=== PATIENT | female | born 1945 | race Caucasian/White ===

== ENCOUNTER → 2017-08-16 11:22 | Outpatient (CLI) | payer MEDICARE, OTHER, SELFPAY ==
[2017-08-16 11:51] LABS: Alanine Aminotransferase 26 IU/L (9-52); Albumin 3.7 g/dL (3.5-5.0); Albumin Globulin Ratio 1.2 (1.0-2.8); Alkaline Phosphatase 89 U/L (38-126); Aspartate Aminotransferase 22 IU/L (14-36); BUN Creatinine Ratio 22.5 (6-22); Bilirubin Total 0.5 mg/dL (0.2-1.3); Blood Urea Nitrogen 18 mg/dL (7-17); Calcium 10.1 mg/dL (8.4-10.2); Carbon Dioxide 25 mmol/L (22-32); Chloride 109 mmol/L (98-107); Estimated Glomerular Filt Rate > 60.0 mL/min (>60); Glucose 102 mg/dL (80-110); HEMOLYSIS < 15 (0-50); Potassium 3.7 mmol/L (3.4-5.1); Sodium 144 mmol/L (137-145); Total Protein 6.7 g/dL (6.3-8.2)
[2017-08-16 12:03] LABS: Hematocrit 43.4 % (36-46); Hemoglobin 14.5 g/dL (12.0-16.0); Mean Corpuscular HGB Conc 33.4 % (30-36); Mean Corpuscular Hemoglobin 29.8 PG (26-34); Mean Corpuscular Volume 89.3 fL (80-100); Platelet Count 159 X10^3/uL (150-400); Red Blood Cell Count 4.86 X10^6/uL (4.0-5.2); Red Cell Distribution Width 13.4 % (11.6-14.8); White Blood Cell Count 3.1 X10^3/uL (4.5-11.0)
[2017-08-16 12:04] LABS: Add Manual Diff / Slide Review YES
[2017-08-16 12:40] LABS: Neutrophils Absolute Manual 124 /uL (3000-5900); RBC Morphology Normal Morphology; Total Cells Counted 100
--- NOTE | 2017-08-23 14:56 | PC.NURSE ---
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
== END ==
PROVIDERS: Family Provider Internal Medicine; PCP Internal Medicine; Visit Provider Nurse Practitioner Gerontology
DX: D70.9 Neutropenia, unspecified (principal)
CPT/HCPCS: 36415; 80053; 85025

== ENCOUNTER → 2018-02-11 13:45 | Outpatient (CLI) | payer MEDICARE, OTHER, SELFPAY ==
[2018-02-11 14:16] LABS: Hematocrit 42.4 % (36-46); Hemoglobin 14.3 g/dL (12.0-16.0); Mean Corpuscular HGB Conc 33.7 % (30-36); Mean Corpuscular Hemoglobin 29.8 PG (26-34); Mean Corpuscular Volume 88.4 fL (80-100); Platelet Count 171 X10^3/uL (150-400); Red Blood Cell Count 4.79 X10^6/uL (4.0-5.2); Red Cell Distribution Width 13.5 % (11.6-14.8); White Blood Cell Count 4.3 X10^3/uL (4.5-11.0)
[2018-02-11 14:34] LABS: Add Manual Diff / Slide Review YES
[2018-02-11 14:57] LABS: Carbon Dioxide 26 mmol/L (22-32); Chloride 106 mmol/L (98-107); HEMOLYSIS < 15 (0-50); Sodium 143 mmol/L (137-145)
[2018-02-11 15:01] LABS: Neutrophils Absolute Manual 172 /uL (3000-5900); RBC Morphology Normal Morphology; Total Cells Counted 100
== END ==
PROVIDERS: Orthopaedic Surgery; Family Provider Internal Medicine; PCP Internal Medicine; Visit Provider Nurse Practitioner Gerontology
DX: Z01.818 Encounter for other preprocedural examination (principal)
CPT/HCPCS: 36415; 80051; 85025

== ENCOUNTER → 2018-02-11 14:01 | Outpatient (CLI) | payer MEDICARE, OTHER, SELFPAY | PROVIDERS: PCP Internal Medicine; Visit Provider Orthopaedic Surgery | DX: Z01.818 Encounter for other preprocedural examination (principal) | CPT/HCPCS: 93005; 93010 ==

== ENCOUNTER → 2018-03-01 09:57 | Outpatient (CLI) | payer MEDICARE, OTHER, SELFPAY ==
--- NOTE | 2018-03-01 | DI.MRI.S_ITS ---
PROCEDURE: MR KNEE LT WO CON INDICATIONS: UNILATERAL PRIMARY OSTEOARTHRITIS OF LEFT KNEE TECHNIQUE: Noncontrast sagittal PD fast spin echo and T2 fast spin echo with fat saturation, sagittal 3-D FLASH with fat saturation; coronal T1 spin echo and PD fast spin echo with fat saturation, and axial PD fast spin echo with fat saturation through the knee. COMPARISON: [facility] [place], CR, KNEE SERIES LT, 05/29/2016, 12:26. FINDINGS: Image quality: Excellent. Menisci: The intrameniscal amorphous high signal intensity within the posterior horn medial meniscus is present without definite articular surface extension. There is lateral extrusion of the lateral meniscus, which demonstrates diffuse amorphous high signal intensity with superior and inferior articular surface extension, as well as fragmentation, indicating severe degenerative tearing. Cruciate ligaments: The anterior and posterior cruciate ligaments appear intact. Medial structures: The medial collateral ligament appears intact. Visualized portions of the pes anserinus tendons appear normal. No abnormal bursal fluid. Lateral structures: The lateral collateral ligament demonstrates a small amount of fluid signal intensity within its mid and distal aspects. The long and short heads of the biceps femoris tendon appear intact. The popliteus tendon appears normal. Iliotibial band appears normal. Anterior structures: The quadriceps and patellar tendons appear intact. There is mild lateral patellar subluxation. No femoral trochlear dysplasia or ventral trochlear prominence. No edema in the infrapatellar fat pad. Bones and cartilage: No bone marrow contusions or fractures. Intraosseous ganglia and degenerative marrow edema within the mid and posterior aspect of the central tibial plateau. Moderate tricompartmental periarticular osteophyte formation. Mild diffuse articular cartilage loss overlies the weightbearing aspects of the medial femoral condyle and medial tibial plateau with superimposed moderate articular cartilage loss diffusely overlying the mid weightbearing aspect of the medial femoral condyle. Severe diffuse articular cartilage loss overlies the weightbearing aspects of the lateral femoral condyle and lateral tibial plateau. Moderate diffuse articular cartilage loss overlies the medial and lateral patellar facets with a superimposed 3 mm diameter region of full-thickness articular cartilage loss overlying the lateral patellar facet. Mild ill-defined underline degenerative marrow edema within the lateral patellar facet is present. Joint space: There is a large knee joint effusion and a small Rouse's cyst. Small ganglion cyst along the popliteus. Normal appearing synovial plicae are incidentally noted. IMPRESSION: 1. Tricompartmental osteoarthritis with associated articular cartilage loss. 2. Severe degenerative tearing of the lateral meniscus. Myxoid degeneration of the medial meniscus without definite superimposed tear. 3. Partial-thickness lateral collateral ligament tear. 4. Knee joint effusion and Rouse's cyst. Dictated by: Manuel Hough M.D. on 03/01/2018 at 11:21 Approved by: Manuel Hough M.D. on 03/01/2018 at 11:26
== END ==
PROVIDERS: Family Provider Internal Medicine; PCP Internal Medicine; Visit Provider Orthopaedic Surgery
DX: M17.12 Unilateral primary osteoarthritis, left knee (principal)
CPT/HCPCS: 73721

== ENCOUNTER 2018-03-20 07:37 | Day surgery (SDC) | payer MEDICARE, OTHER, SELFPAY ==
[2018-03-14 10:02] VITALS: BMI 26.2
[2018-03-20] VITALS (17 sets, daily range): BP systolic 94–144; BP diastolic 44–86; PULSE 65–80; RESP 10–16; TEMP 36.4–37; O2SAT 91–98; BMI 26.0
--- NOTE | 2018-03-20 | DI.RAD.S_ITS ---
PROCEDURE: XR KNEE LT 1TO2V INDICATIONS: TOTAL LEFT KNEE TECHNIQUE: 2 view(s) of the knee acquired. COMPARISON: , , KNEE 3V LEFT, 09/14/2009, 10:03. FINDINGS: Bones: Patient is status post knee joint arthroplasty. Hardware components are in expected positions. Visualized bony structures are intact. Soft tissues: Overlying postoperative changes are noted. IMPRESSION: Normal postoperative examination. Dictated by: Simon Grant M.D. on 03/20/2018 at 10:46 Approved by: Simon Grant M.D. on 03/20/2018 at 10:46
[2018-03-20] MEDS: PREGABALIN 75 MG CAPSULE PO (08:09)
[2018-03-20] MEDS: CELECOXIB 200 MG CAPSULE PO (08:09)
[2018-03-20] MEDS: ACETAMINOPHEN 325 MG TABLET 975 MG PO ×3 (08:09→20:49)
[2018-03-20] MEDS: LACTATED RINGERS 1,000 ML 42 ML IV ×2 (08:11→09:54)
[2018-03-20] MEDS: CEFAZOLIN 2 GM/100 ML FROZ.PIGGY IV ×2 (08:50→17:23)
--- NOTE | 2018-03-20 08:50 | PM.PREOP ---
Pre-operative Note Interval Note History & Physical reviewed/Exam performed by Physician: Yes Changes to H&P: No
--- NOTE | 2018-03-20 08:52 | P.OP_ITS ---
Operative Date/Time/Diagnoses Date of procedure: 03/20/18 Time of procedure: 10:13 Pre-op diagnosis: Left knee osteoarthritis Post-op diagnosis: same Procedure & Clinicians Procedure: Left total knee arthroplasty Same procedure as scheduled: Yes Indications: The patient presents today for total knee arthroplasty after failure of conservative treatment. The nature of the procedure including the risks and benefits, alternatives, postoperative course and expected outcome were discussed and all questions answered. Consent was obtained. Operative site confirmed and marked. Surgeon: Mani Sanchez [employer]cher [employer]ards: Nicholas Waters Anesthesia Type: General, Spinal and Local Operative Notes Findings: Left knee osteoarthritis. Closure Type: primary Specimen(s): none sent Implants & Drains: [employer] BCS: 4 femoral component, 3 tibial component, 9 mm BCS polyethylene tray and 32 mm x 7.5 mm mm round patella Applied: implant(s) Estimated Blood Loss (mL): 50 Blood products transfused: none Tourniquet time (min): 17 Procedure in detail: The patient was taken to the operative suite and placed under general and spinal anesthesia. The patient was given prophylactic antibiotics prior to surgery. The patient was also given tranexamic acid, 1 g, just prior to surgery for postoperative hemostasis. The lateral knee was prepped and the joint injected with 20 mL of 1% Lidocaine with epinephrine. The knee was then prepped and draped in usual sterile fashion. The leg was exsanguinated with an Esmarch dressing and the tourniquet raised to 250 torr. A 15 cm anterior incision was made. Next a medial trivector arthrotomy was made. The extensor mechanism was marked to ensure accurate repair. Initial exposing dissection was carried out medially and laterally. The knee was then extended and the patellar thickness was measured and a cut made removing approximately 7 mm of bone with a goal of restoring normal patellar thickness. The patella was then sized and drilled. Some excess lateral bone was excised and the patellofemoral ligament released. The tourniquet was then released. The knee was then flexed and the [employer] femoral guide was placed. The anterior pins were placed and the distal rotation holes drilled. The distal cutting guide was placed and the templated distal femoral cut was made. The templating cutting block was then placed and the anterior, posterior and chamfer cuts made. The [employer] tibial guide was placed and the alignment checked along the axis of the proximal tibial with a rogerio. The proximal tibial cut was then made with an oscillating saw. All meniscus and bony debris was then removed. Flexion extension gaps were checked. There is just slight tightness medially in both flexion and extension. This was easily corrected with a gentle percutaneous release with 18 gauge needle on the MCL. The soft tissues were then injected with a combination of 20 mL of half percent Marcaine with epinephrine and 20 mL of Exparel. The trial components were then placed. The knee went into full extension and flexion beyond 120?. There was excellent medial- lateral balance throughout motion. Patellar tracking was excellent. The trial components were removed and size is confirmed for the final implants. The knee was then exsanguinated with an Esmarch dressing and the tourniquet reapplied for cementing. The knee was cleansed with Pulsavac irrigation and dried. The final components were cemented in with high viscosity vacuum mixed bone cement with antibiotics. The knee was held in extension and the patellar clamp until the cement had adequately cured. The knee was then irrigated with dilute Betadine solution. The extensor mechanism was closed with 5 interrupted #1 Vicryl sutures in 90 degrees of flexion. The joint was then injected with a combination of 1 g of tranexamic acid and 20 mL of quarter percent Marcaine with epinephrine. The subcutaneous tissue was closed with 2-0 Vicryl. The skin was closed with jodie and surgical adhesive. An Aquacel dressing and Virgil wrap were then applied. Complications: none Condition: stable Disposition: PACU Plan for aftercare: [facility] protocol for total knee arthroplasty.
--- NOTE | 2018-03-20 09:22 | SUR.OPER ---
Supine on padded OR bed. Pillow under head, arms secured on padded armboards <90 degree abduction. Safety belt across torso. Non-operative leg secured with tape over blanket over lower leg. Operative leg secured in DeMayo/Marcos positioner. Foam padded brace at thigh of operative leg.
[2018-03-20] MEDS: TRANEXAMIC ACID 1,000 MG VIAL 2000 MG INJ (09:29)
[2018-03-20] MEDS: LIDOCAINE 1% W/EPI INJ 20 ML INJ (09:31)
[2018-03-20] MEDS: BUPIVACAINE LIPOSOME 266 MG/20 ML VIAL INJ (09:32)
[2018-03-20] MEDS: BUPIVACAINE 0.5% W/ EPI (PF) 10 ML, TRANEXAMIC ACID 1,000 MG, SODIUM CHLORIDE 0.9% 20 ML INJ (09:33)
[2018-03-20] MEDS: LACTATED RINGERS 1,000 ML 125 ML IV ×2 (12:13→20:56)
--- NOTE | 2018-03-20 15:50 | PT.IIE ---
Current Diagnoses Bilateral primary osteoarthritis of knee (03/20/18) Surgery Performed Operation Date: 03/20/18 08:45 Actual Procedures p Total Knee Arthroplasty(Left) - Mani Sanchez MD Surgical History (Last Updated 03/14/18 @ 10:25 by Cherelle Arora RN) History of left cataract extraction (Acute ~2016) History of right cataract extraction (Acute ~2013) History of tonsillectomy and adenoidectomy (Acute) Medical History (Last Updated 03/14/18 @ 10:25 by Cherelle Arora RN) Diverticulitis (Acute ~09/2017) Edema extremities (Acute) GERD (gastroesophageal reflux disease) (Acute) H/O: hysterectomy (Acute) HTN (hypertension) (Acute) Hyperlipidemia (Acute) Lower back pain (Acute) Macular pucker, right eye (Acute ~2013) Urethra disorder (Acute ~1969) Walking pneumonia (Acute) Physical Therapy Inpatient Evaluation/Re-Eval M1 PT/OT-IP Prior Functional Status Start: 03/20/18 17:10 Freq: NEEDED Status: Active Protocol: Document 03/20/18 15:50 AB (Rec: 03/20/18 17:20 AB [id number]) Medical Review Prior Functional Status Medical History Reviewed Yes Communication able to make needs known Mobility and Gait stated that she is independent with all mobilitieis and ambulation without AD Prior Functional Level (Other details) 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 pt stays on main level of the house; has 3 steps to enter with L rail ascending Home Environment High Toilet Walk in Shower Home Equipment Front Wheel Walker Straight Cane Raised Toilet Seat w/Armrests Shower Seat with Backrest Hand Held Shower M2 PT-IP Current Condition Start: 03/20/18 17:10 Freq: NEEDED Status: Active Protocol: Document 03/20/18 15:50 AB (Rec: 03/20/18 17:20 AB [id number]) Physical Therapy Current Condition Current Condition Evaluation Date 03/20/18 Treatment Diagnosis s/p L TKA; difficulty in walking Onset Date 03/20/18 Weight Bearing Status Weight Bearing Status Weight Bear as Tolerated M3 PT-IP Subjective Start: 03/20/18 17:10 Freq: NEEDED Status: Active Protocol: Document 03/20/18 15:50 AB (Rec: 03/20/18 17:20 AB [id number]) Subjective Physical Therapy Visit Type Type Initial Evaluation Visit Start Time 15:50 Visit Stop Time 16:45 Total Visit Minutes 55 Number of DITCHER OPERATOR Visits 0 Physical Therapy Visit Comments Patient Comments pt agreeable to do PT Therapy Pain Assessment Pain Present Pain Present Denied Pain M4 PT-IP Mobility and Gait Start: 03/20/18 17:10 Freq: NEEDED Status: Active Protocol: Document 03/20/18 15:50 AB (Rec: 03/20/18 17:20 AB [id number]) PT-Bed Mobility Assessment Supine to Sit Supine to Sit Standby Assistance PT-Transfer Assessment Sit to and From Stand Sit to and from Stand Minimal Assistance Equipment Transfer Assistive Device Gait Belt Front Wheeled Walker Orthotic/Prosthetic Devices or Brace: No Transfers Transfer Destination Toilet Transfer Technique pt ambulated to the toilet using FWW Comments Mobility Comments pt compleed bed mobility supine to sit SBA and sit to stand from EOB min A and max cues for safety. pt ambulated using FWW to the toilet min A and cues to activate quads. pt required mod A for controlled descent to the toilet. completed sit to stand from the toilet mod A and cues and used grab bars for support. pt ambulated to the sink using FWW min A and was able to maintain standing CGA to min A while doing handwashing. pt agreed to sit up on chair and ambulated to the chair using FWW min A and cues. set up on chair with ice pack, call light and table within reach. Gait Assessment Gait Gait Assistance Required: Minimum Assistance Distance (Feet) 20 Able to Maintain Weight Bearing Status Yes During Gait Assistive Devices Assistive Device Gait Belt Front Wheeled Walker Orthotic/Prosthetic Devices or Brace: No Gait Deviations General Gait Pattern Antalgic Decreased Stride Length Decreased Feet Clearance Factors Limiting Gait Function Factors Limiting Gait Function Decreased Activity Tolerance Decreased Strength Limited Range of Motion Poor Balance Poor Safety Awareness Comments Gait Comments pt ambulated to the toilet using FWW. pls refer to mobility section for details. PT-Balance Assessment Sitting Balance and Reactions Static Sitting Balance Ability Good Dynamic Sitting Balance Ability Good Standing Balance and Reactions Static Standing Balance Ability Fair Dynamic Standing Balance Ability Fair Device Used FWW M5 PT-IP Objective Assessments Start: 03/20/18 17:10 Freq: NEEDED Status: Active Protocol: Document 03/20/18 15:50 AB (Rec: 03/20/18 17:20 AB [id number]) Orientation Orientation/Cognition Level of Alertness Alert Orientation Name Age Birthday Month Date Year Day of Week Place Situation Language Function Ability No Deficits Noted Safety Awareness Understands Safety Issues Memory Description No Deficits Noted Gross Range of Motion Lower Extremity ROM Assessment Left Impaired Impairments L knee flexion: ~ 90 deg Strength Lower Extremity Strength Assessment Left Impaired Hip 4-/5 Knee 3+/5 Coordination Assessment Gross Coordination Gross Coordination WNL Sensation Assessment Comments Sensation Comments c/o numbness on buttocks Muscle Tone Muscle Tone WNL Yes M6 PT-IP Treatment Start: 03/20/18 17:10 Freq: NEEDED Status: Active Protocol: Document 03/20/18 15:50 AB (Rec: 03/20/18 17:20 AB [id number]) Physical Therapy Treatment Education Education Provided Precautions Weight Bearing Status Post-Op Packet Safety M7 PT-IP Assessment and Plan Start: 03/20/18 17:10 Freq: NEEDED Status: Active Protocol: Document 03/20/18 15:50 AB (Rec: 03/20/18 17:20 AB [id number]) PT Summary Assessment and Plan Potential Rehabilitation Potential Good Status of Condition at Evaluation Stable Summary Impairments Pain ROM Strength Balance Coordination Sensation Tone Cognition Bed Mobility Transfers Gait Activity Tolerance Assessment Summary pt requiring one person assist with mobility and plans to go home with her significant other to assist her. set up caregiver training tomorrow at 930 am. d/c plan depending on safety and if S.O. will be able to assist pt appropriately. pt stated that she is set up for outpt PT. Goals Bed Mobility Goal Independent Transfer Goal Standby Assistance Front Wheeled Walker Gait Goal Standby Assistance Front Wheel Walker Gait Distance 150 Other Goals up/down 3 steps with L rail ascending SBA Days to Meet Goals 3 Frequency of Treatment Frequency Of Treatment Twice a Day Treatment Plan Physical Therapy Treatment Plan Bed Mobility Training Transfer Training Gait Training Therapeutic Exercise Balance Retraining Post Op Education Discharge Planning Hot or Cold Pack Neuromuscular Re-ed Coordination Retraining Manual Therapy Other Recommendations and Next Treatment caregiver training 930 am , Focus stair climbing, long distance ambulation Recommendations To Nursing Amount of Assist Needed 1 Person Assist Discharge Recommendations PT Discharge Recommendations Home with Assistance Outpatient PT
[2018-03-20] MEDS: ATORVASTATIN 10 MG TABLET PO (20:49)
[2018-03-20] MEDS: ASPIRIN EC 81 MG TABLET PO (20:49)
[2018-03-21 00:05] VITALS: BP 109/63; PULSE 67; RESP 18; TEMP 36.7; O2SAT 95
[2018-03-21] MEDS: CEFAZOLIN 2 GM/100 ML FROZ.PIGGY IV (02:12)
[2018-03-21 04:35] VITALS: BP 120/53; PULSE 76; RESP 18; TEMP 36.7; O2SAT 95
--- NOTE | 2018-03-21 05:26 | PC.NURSE ---
Pt is A and O x 4, motivated to discharge. Denies pain, using two ice packs. Able to sleep. LS clear, S1, S2, + BTs. Voiding qs clear yellow. Eating and drinking.
[2018-03-21] MEDS: SODIUM CHLORIDE 0.9% 1,000 ML 125 ML IV (05:49)
[2018-03-21] MEDS: IBUPROFEN 600 MG TABLET PO ×2 (05:52→13:01)
[2018-03-21] MEDS: PANTOPRAZOLE 20 MG TABLET PO (05:52)
[2018-03-21 06:06] LABS: Hemoglobin 11.4 g/dL (12.0-16.0)
--- NOTE | 2018-03-21 07:27 | PM.DS.1 ---
History of Present Illness Date Patient Seen: 03/21/18 Time Patient Seen: 07:27 Chief complaint: 43050 Knee Arthroplasty Narrative: Pain is mild. Denies fever chills. No nausea vomiting. Patient has assistance at home. Patient feels ready to go home today. Discharge Providers Date of admission: 03/20/18 07:37 Primary care physician: Joy Woo MD Consults: 03/20/18 11:11 Consult to Discharge Planning Routine Comment: Consult to Physical Therapy Evaluate & Treat Comment: Physician Instructions: postop TKA protocol Consult to Respiratory Therapy Evaluate & Treat Comment: Physician Instructions: Evaluate and treat Discharge provider: Nicholas Waters PA-C Discharge Date: 03/21/18 Summary Discharge Diagnosis: Status post left total knee arthroplasty Hospital Course: The patient presents today for total knee arthroplasty after failure of conservative treatment. The nature of the procedure including the risks and benefits, alternatives, postoperative course and expected outcome were discussed and all questions answered. Consent was obtained. Operative site confirmed and marked. Surgeon: Mani Sanchez Category Development Manager: Nicholas Waters Anesthesia Type: General, Spinal and Local Patient taken to the operating room underwent left total knee arthroplasty. Patient back in her room recovering well as in stable condition. Exam Vital Signs (past 8 hours): - 03/21/18 00:05 03/21/18 04:35 Temperature 98.0 F 98.1 F Pulse Rate 67 76 Respiratory Rate 18 18 Blood Pressure 109/63 120/53 L Pulse Oximetry 95 95 Fraction of Inspired Oxygen 21 Oxygen Delivery Method Room Air Oxygen Flow Rate 0 Narrative Exam Narrative: Pleasant 73-year-old female resting comfortably in bed in no apparent distress. Left knee dressing is clean, dry and intact. Left leg is warm and dry. Sensation grossly intact to light touch. Motor functions intact distal left lower extremity. Objective Labs Result Diagrams: 03/21/18 05:40 Labs: Laboratory Results - last 24 hr 03/21/18 05:40 Hgb 11.4 L Hct 34.0 L Discharge Plan Discharge Plan Patient Disposition: Home Discharge comment: See [employer] manual for postoperative instructions. Discharge Med Rec/Prescriptions Prescriptions: Continue sumatriptan succinate [Imitrex] 50 MG tablet 1 tab PO TID PRN (Reason: migraines) Qty: 0 RF: 0 aspirin 81 MG tablet,delayed release (DR/EC) 81 mg PO QDAY Qty: 0 RF: 0 omeprazole 20 MG capsule,delayed release(DR/EC) 20 mg PO QDAY Qty: 0 RF: 0 [id number]-FA-vit K [Multi For Her] 18 mg iron-600 mcg-40 mcg Capsule 1 tab-cap PO DAILY Qty: 0 RF: 0 losartan 100 MG tablet 100 mg PO BEDTIME Qty: 0 RF: 0 fluticasone [Flonase Allergy Relief] 50 mcg/actuation [place],Suspension 1 spray Intranasal QDAY Qty: 0 RF: 0 furosemide 20 mg Tablet 20 mg PO DAILY RF: 0 ascorbic acid (vitamin C) [Vitamin C] 500 mg Capsule, Extended Release 500 mg PO DAILY RF: 0 atorvastatin [Lipitor] 10 mg Tablet 10 mg PO BEDTIME RF: 0 calcium carbonate-vitamin D3 [Calcium 500 + D (D3)] 500 mg(1,250mg) -125 unit Tablet 1 tab PO DAILY RF: 0 aspirin 325 mg Tablet 650 mg PO Q4-6H PRN (Reason: pain) RF: 0 Follow up/Referrals: Mani Sanchez MD [Physician] - (follow up 1 wk) Joy Woo MD [Primary Care Provider] - Provider Discharge Instructions Diet: Regular Activity: Activity as tolerated. Start physical therapy as directed. Cold/Heat Therapy: Ice the knee as needed for pain control. Skin/Wound/Dressing Care Report to your healthcare provider any signs of infection, such as:: chills, fever, increased pain, unusual drainage and unusual redness Dressing: May leave dressing in place for 7-10 days. May shower over dressing. Discharge Data Primary Care Provider: Joy Woo Attending Provider: Mani Sanchez Admit Date/Time: 03/20/18 07:37 Quality VTE Deep Vein Thrombosis/Pulmonary Embolism Present on Admission: No
[2018-03-21 08:00] VITALS: BP 112/59; PULSE 68; RESP 16; TEMP 36.6; O2SAT 93
[2018-03-21] MEDS: ACETAMINOPHEN 325 MG TABLET 975 MG PO (08:55)
[2018-03-21] MEDS: ASPIRIN EC 81 MG TABLET PO (08:56)
[2018-03-21] MEDS: FLUTICASONE 120 SPRAY/16 GM SPRAY.SUSP NASAL (08:57)
[2018-03-21 09:31] VITALS: PULSE 68; RESP 16; O2SAT 94
--- NOTE | 2018-03-21 10:15 | PT.IPTN ---
Current Diagnoses Bilateral primary osteoarthritis of knee (03/20/18) Surgery Performed Operation Date: 03/20/18 08:45 Actual Procedures p Total Knee Arthroplasty(Left) - Mani Sanchez MD Physical Therapy Treatment Note M2 PT-IP Current Condition Start: 03/20/18 17:10 Freq: NEEDED Status: Discharge Protocol: Document 03/20/18 15:50 AB (Rec: 03/20/18 17:20 AB [id number]) Physical Therapy Current Condition Current Condition Evaluation Date 03/20/18 Treatment Diagnosis s/p L TKA; difficulty in walking Onset Date 03/20/18 Weight Bearing Status Weight Bearing Status Weight Bear as Tolerated M3 PT-IP Subjective Start: 03/20/18 17:10 Freq: NEEDED Status: Discharge Protocol: Document 03/21/18 10:15 AB (Rec: 03/21/18 13:54 AB [email or web address]) Subjective Physical Therapy Visit Type Type Treatment Note Visit Start Time 10:15 Visit Stop Time 11:00 Total Visit Minutes 45 Number of TOBACCO PACKING MACHINE OPERATOR Visits 0 Physical Therapy Visit Comments Patient Comments pt agreeable to do PT Therapy Pain Assessment Pain When Pain Assessed At Rest Pain Present Pain Present Pain Reported Location left knee Intensity 3 Scale Used Numeric (1 - 10) Pain Management Techniques Apply Cold Timing of Activity with Medications M4 PT-IP Mobility and Gait Start: 03/20/18 17:10 Freq: NEEDED Status: Discharge Protocol: Document 03/21/18 10:15 AB (Rec: 03/21/18 13:54 AB [email or web address]) PT-Bed Mobility Assessment Supine to Sit Supine to Sit Minimal Assistance 1 Person Assistance Sit to Supine Sit to Supine Minimal Assistance 1 Person Assistance PT-Transfer Assessment Sit to and From Stand Sit to and from Stand Contact Guard Assistance 1 Person Assistance Use of Upper Extremities Comments Mobility Comments Caregiver training conducted. pt's significant other educated on how to use gait belt and assist pt with bed mobility, transfers and ambulation and was able to counterdemonstrate; was able to safely assist pt. Gait Assessment Gait Gait Assistance Required: Contact Guard Assist Distance (Feet) 100 Able to Maintain Weight Bearing Status Yes During Gait Assistive Devices Assistive Device Gait Belt Front Wheeled Walker Orthotic/Prosthetic Devices or Brace: No Gait Deviations General Gait Pattern Antalgic Decreased Stride Length Decreased Feet Clearance Factors Limiting Gait Function Factors Limiting Gait Function Decreased Activity Tolerance Decreased Strength Limited Range of Motion Pain Poor Balance Poor Safety Awareness Stair Climbing Assessment Evaluation Level of Assist On Stairs Contact Guard Assistance Devices Stair Climbing Assistive Devices Left Railing Technique/Endurance Stair Climbing Direction Ascend and Descend Stair Climbing Technique Step to Step Number of Steps Climbed 3 Query Text: Stair Climbing Set # Repetitions (reps) 2 Comments Stair Climbing Comments caregiver training condcuted for stair climbing and caregiver was able to safely assist pt with stairs and cue pt appropriately. M5 PT-IP Objective Assessments Start: 03/20/18 17:10 Freq: NEEDED Status: Discharge Protocol: Document 03/20/18 15:50 AB (Rec: 03/20/18 17:20 AB [id number]) Orientation Orientation/Cognition Level of Alertness Alert Orientation Name Age Birthday Month Date Year Day of Week Place Situation Language Function Ability No Deficits Noted Safety Awareness Understands Safety Issues Memory Description No Deficits Noted Gross Range of Motion Lower Extremity ROM Assessment Left Impaired Impairments L knee flexion: ~ 90 deg Strength Lower Extremity Strength Assessment Left Impaired Hip 4-/5 Knee 3+/5 Coordination Assessment Gross Coordination Gross Coordination WNL Sensation Assessment Comments Sensation Comments c/o numbness on buttocks Muscle Tone Muscle Tone WNL Yes M6 PT-IP Treatment Start: 03/20/18 17:10 Freq: NEEDED Status: Discharge Protocol: Document 03/21/18 10:15 AB (Rec: 03/21/18 13:54 AB [email or web address]) Physical Therapy Treatment Education Education Provided Precautions Safety M7 PT-IP Assessment and Plan Start: 03/20/18 17:10 Freq: NEEDED Status: Discharge Protocol: Document 03/21/18 10:15 AB (Rec: 03/21/18 13:54 AB [email or web address]) PT Summary Assessment and Plan Potential Rehabilitation Potential Good Summary Impairments Pain ROM Strength Balance Bed Mobility Transfers Gait Activity Tolerance Progress Towards Goals Progressing Toward Goals Assessment Summary pt doing well with mobility and plans to go home with assist. caregiver training conducted and pt's significant other was able to assist pt safely. Goals Bed Mobility Goal Independent Transfer Goal Standby Assistance Front Wheeled Walker Gait Goal Standby Assistance Front Wheel Walker Gait Distance 150 Other Goals up/down 3 steps with L rail ascending SBA Days to Meet Goals 3 Frequency of Treatment Frequency Of Treatment Twice a Day Treatment Plan Physical Therapy Treatment Plan Bed Mobility Training Transfer Training Gait Training Therapeutic Exercise Balance Retraining Post Op Education Discharge Planning Hot or Cold Pack Neuromuscular Re-ed Coordination Retraining Manual Therapy Other Recommendations and Next Treatment caregiver training 930 am , Focus stair climbing, long distance ambulation Recommendations To Nursing Amount of Assist Needed 1 Person Assist Discharge Recommendations PT Discharge Recommendations Home with Assistance Outpatient PT
--- NOTE | 2018-03-21 13:44 | CM.IDA ---
Discharge Planning/Care Management CM Discharge Assessment Start: 03/21/18 13:40 Freq: Status: Discharge Protocol: Document 03/21/18 13:40 ANDRES (Rec: 03/21/18 13:44 ANDRES [id number]) Discharge Planning Assessment Assigned Business Systems Technician GONZÁLEZ Tran DPOA/Assigned Designee Name CHEN Clark Contact Information [phone] Advance Directives? Yes: Information mailed to patient Advance Directives on File No History Provided By Patient Prior Living Arrangements House Household Members significant other Type of transporation used prior to Drives own vehicle admit Independent with ADL's Yes Is patient alert and oriented? Yes Barriers to Discharge No Comment Met w/pt and her SO Juan, explained SW role. Pt expecting to DC home after lunch. Pt very pleasant and explains the quan path program has been very helpful for her. She is typically active and indp at baseline and has no addtl. concerns or questions going home w/SO today. She expects to f/u w/ the PT she has seen in the past. PT has cleared her for return home w/outpt f/u. Discharge Plan Home Transportation Arrangement SO Referrals Initiated None needed Whiteboard Updated in Patient Room with Yes name and ext. # of Business Systems Technician Review Status In Process Pre-Anesthesia Assessment Start: 03/14/18 10:02
== END 2018-03-21 13:34 | disposition home or self-care (01) ==
LOC: AC 03-21 11:35 → OR 03-21 13:47
PROVIDERS: Family Provider Internal Medicine; PCP Internal Medicine; Visit Provider Orthopaedic Surgery
PROC: 0SRD0JZ Replacement of Left Knee Joint with Synthetic Substitute, Open Approach (ICD-10-PCS; CPT 27447; principal; 2018-03-20 08:45)
DX: M17.12 Unilateral primary osteoarthritis, left knee (principal); I10 Essential (primary) hypertension
CPT/HCPCS: 27447; 36415; 73560; 85014; 85018; 94760; 94762; 97161; 97530; C1776; C9290; J0690; J1100; J2250; J2274; J2405; J2704; J3010

== ENCOUNTER → 2018-04-17 | Outpatient (CLI) | payer MEDICARE, OTHER, SELFPAY ==
[2018-03-20 12:18] VITALS: BMI 26.0
[2018-04-17 16:56] LABS: Hematocrit 39.4 % (36-46); Hemoglobin 13.4 g/dL (12.0-16.0); Mean Corpuscular HGB Conc 33.9 % (30-36); Mean Corpuscular Hemoglobin 30.3 PG (26-34); Mean Corpuscular Volume 89.6 fL (80-100); Platelet Count 177 X10^3/uL (150-400); Red Cell Distribution Width 13.7 % (11.6-14.8)
[2018-04-17 17:11] LABS: Alanine Aminotransferase 26 IU/L (9-52); Albumin 4.3 g/dL (3.5-5.0); Albumin Globulin Ratio 1.3 (1.0-2.8); Alkaline Phosphatase 100 U/L (38-126); Aspartate Aminotransferase 22 IU/L (14-36); BUN Creatinine Ratio 26.7 (6-22); Bilirubin Total 0.6 mg/dL (0.2-1.3); Blood Urea Nitrogen 24 mg/dL (7-17); C-Reactive Protein Quant 1.6 mg/dL (<1.0); Calcium 10.5 mg/dL (8.4-10.2); Carbon Dioxide 29 mmol/L (22-32); Chloride 102 mmol/L (98-107); Estimated Glomerular Filt Rate > 60.0 mL/min (>60); Globulin 3.4 g/dL (1.7-4.1); Glucose 91 mg/dL (80-110); HEMOLYSIS < 15 (0-50); Potassium 3.9 mmol/L (3.4-5.1); Sodium 139 mmol/L (137-145); Total Protein 7.7 g/dL (6.3-8.2)
[2018-04-17 17:15] LABS: Erythrocyte Sedimentation Rate 41 MM/HR (0-20)
--- NOTE | 2018-04-18 16:35 | PC.NURSE ---
Addendum entered by Tacos Cook R.N. 04/19/18 08:58: Per Anabel, based on pts numbers, no indication for neupogen. However, if pt feeling febrile, sick etc ok to provide neupogen if she wants. This was scribe from original note. Original Note: pt called to tell you see saw Dr Rosales on 04/17 for what appears to be an abscess r/t a suture trying to work it way thru the skin. They sent her for a CBC but did not preform a Diff. Here question is do you think she needs a neupogen injection and if so when would you like her to receive it. I can call her on Sunday to let her know your answer
== END ==
PROVIDERS: Family Provider Nurse Practitioner Gerontology; PCP Internal Medicine; Visit Provider Orthopaedic Surgery
DX: M17.12 Unilateral primary osteoarthritis, left knee (principal)
CPT/HCPCS: 36415; 80053; 85027; 85651; 86140

== ENCOUNTER 2018-04-19 13:09 | Inpatient (IN) | payer MEDICARE, OTHER, SELFPAY ==
[2018-03-20 12:18] VITALS: BMI 26.0
[2018-04-19] VITALS (14 sets, daily range): BP systolic 112–193; BP diastolic 29–92; PULSE 69–86; RESP 11–21; TEMP 36.2–37; O2SAT 91–100; BMI 26.4
[2018-04-19] MEDS: LACTATED RINGERS 1,000 ML 42 ML IV (14:03)
--- NOTE | 2018-04-19 15:40 | PM.PREOP ---
Pre-operative Note Interval Note History & Physical reviewed/Exam performed by Physician: Yes Changes to H&P: No
--- NOTE | 2018-04-19 15:41 | PM.OP.1 ---
Operative Date/Time/Diagnoses Date of procedure: 04/19/18 Time of procedure: 17:24 Pre-op diagnosis: Infected left total knee arthroplasty Post-op diagnosis: same Procedure & Clinicians Procedure: Irrigation debridement and polyethylene exchange left total knee Same procedure as scheduled: Yes Indications: The patient presents today for irrigation debridement and polyethylene exchange for infection after total knee arthroplasty. Patient is 4 weeks status post left total knee arthroplasty. She noticed some issues with the wound earlier this week. She was seen 2 days ago and the joint was aspirated. On repeat evaluation today the wound has worsened and the aspiration does have positive cultures for Staph. The nature of the procedure including the risks and benefits, alternatives, postoperative course and expected outcome were discussed and all questions answered. Consent was obtained. Operative site confirmed and marked. Surgeon: Mani Sanchez Click Yes if Unassisted: Yes Anesthesia Type: General and Local Operative Notes Findings: There is a draining wound at the junction of the middle and distal 1/3 of the incision. When the skin was opened 30 was no obvious communication to the joint. The joint had rust colored fluid consistent with recent arthroplasty. No pattie pus. Intraoperative cultures were taken. Closure Type: primary Specimen(s): other (Cultures) Prosthetic devices, grafts, tissues, transplants, or devices: 9 mm size 3 poly exchange Applied: implant(s) Estimated Blood Loss (mL): 25 Blood products transfused: none Tourniquet time (min): 60 Procedure in detail: The patient was taken to the operative suite placed under general anesthesia. The leg was prepped and draped usual sterile fashion. The previous incision was opened. There is a draining area at the junction of the middle and distal 1/3. No obvious pus collection in the subcutaneous tissue. No obvious communication to the joint. The subcu tissue was irrigated with Pulsavac irrigation with 1 L of fluid. The joint was then opened. There was rust colored fluid but no obvious purulence. The polyethylene tray was removed. The knee was debrided and copiously irrigated with 6 L of normal saline. The knee was then soaked with dilute Betadine solution. A new poly ethylene tray was placed. A drain was placed in the joint. Standard closure was then carried out with 1. Ethibond sutures in the capsule. A few 2 0 sutures in subcu. The skin was then closed with jodie and nylon suture. A fortunato dressing was applied. The patient tolerated procedure well and was returned recovery in good condition. Complications: none Condition: stable Disposition: PACU Plan for aftercare: The patient be admitted to the hospital for at least 2-3 days awaiting final culture and sensitivity results. Drain will be left in for 48 hr. She will be started on IV vancomycin. The antibiotics will be adjusted as indicated by the sensitivities.
[2018-04-19] MEDS: VANCOMYCIN 1,000 MG/200 ML FROZ.PIGGY 200 MG IV (15:43)
--- NOTE | 2018-04-19 16:25 | SUR.OPER ---
Supine on padded OR bed, head on pillow, arms secured on padded arm boards at <90 degrees abduction, legs uncrossed, safety belt at thigh, tape over blanket over lower legs.
[2018-04-19] MEDS: BUPIVACAINE 0.5% W/ EPI (PF) VIAL 30 ML INJ (16:34)
[2018-04-19] MEDS: BUPIVACAINE LIPOSOME 266 MG/20 ML VIAL INJ (16:34)
[2018-04-19] MEDS: TRANEXAMIC ACID 1,000 MG VIAL 1000 MG IV (16:35)
[2018-04-19] MEDS: fentaNYL 100 MCG/2 ML INJ 50 MCG IV ×2 (17:32→17:45)
[2018-04-19] MEDS: HYDROMORPHONE 0.5 MG INJ IV (18:24)
[2018-04-19] MEDS: LACTATED RINGERS 1,000 ML 125 ML IV (18:24)
--- NOTE | 2018-04-19 18:27 | SUR.PHASEI ---
Pt transferred to the floor. Vs stable. IV saline locked, j-loop placed. Lt knee drsg cdi. green light flashing on fortunato drain. HV clamped. Report to keshawn Vick.
[2018-04-19] MEDS: ACETAMINOPHEN 325 MG TABLET 975 MG PO (20:13)
[2018-04-19] MEDS: OXYCODONE IR 5 MG TABLET PO (20:13)
[2018-04-19] MEDS: ASPIRIN EC 81 MG TABLET PO (20:14)
[2018-04-19] MEDS: MELOXICAM 7.5 MG TABLET PO (20:14)
[2018-04-19] MEDS: ATORVASTATIN 10 MG TABLET PO (20:14)
[2018-04-19] MEDS: LOSARTAN 50 MG TABLET 100 MG PO (20:14)
[2018-04-19] MEDS: hydrOXYzine pamoate 25 MG CAPSULE PO (21:20)
[2018-04-20] MEDS: OXYCODONE IR 5 MG TABLET PO ×7 (01:41→23:11)
--- NOTE | 2018-04-20 02:01 | PC.NURSE ---
Bladder scanned @ 0032, noted 295 in the BS. Then she got up to the BR & voided, was not able to measure UOP no hat in the toilet. But she voided QS, bladder scanned again after using the BR & none noted. Will cont. POC & monitor.
[2018-04-20] MEDS: LACTATED RINGERS 1,000 ML 125 ML IV (02:25)
[2018-04-20] MEDS: hydrOXYzine pamoate 25 MG CAPSULE PO ×5 (02:25→23:10)
[2018-04-20] MEDS: VANCOMYCIN 1,000 MG/200 ML FROZ.PIGGY 200 MG IV ×2 (03:34→17:19)
[2018-04-20 03:35] VITALS: BP 129/65; PULSE 77; RESP 20; TEMP 36.9; O2SAT 92
[2018-04-20] MEDS: PANTOPRAZOLE 20 MG TABLET PO (05:28)
[2018-04-20 06:08] LABS: Hemoglobin 11.9 g/dL (12.0-16.0)
[2018-04-20] MEDS: HYDROMORPHONE 0.5 MG INJ IV (06:17)
[2018-04-20] MEDS: ACETAMINOPHEN 325 MG TABLET 975 MG PO ×3 (08:34→22:07)
[2018-04-20] MEDS: MELOXICAM 7.5 MG TABLET PO ×2 (08:35→22:09)
[2018-04-20] MEDS: FUROSEMIDE 20 MG TABLET PO (08:35)
[2018-04-20] MEDS: ASPIRIN EC 81 MG TABLET PO ×2 (08:35→22:08)
[2018-04-20 09:10] VITALS: BP 119/53; PULSE 84; RESP 18; TEMP 36.7; O2SAT 96
--- NOTE | 2018-04-20 10:19 | PC.NURSE ---
reports didn't sleep well last night. states pain controlled at 05/12. fortunato drsg cdi and functioning. hv compressed and patent. napping at this time per her request.
--- NOTE | 2018-04-20 10:30 | PT.IIE ---
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, initial encounter (04/19/18) Surgery Performed Operation Date: 04/19/18 15:15 Actual Procedures p Incision and Drainage left knee with poly exchange(Left) - Mani Sanchez MD Surgical History (Last Updated 03/14/18 @ 10:25 by Cherelle Arora, RN) History of left cataract extraction (Acute ~2016) History of right cataract extraction (Acute ~2013) History of tonsillectomy and adenoidectomy (Acute) Medical History (Last Updated 03/14/18 @ 10:25 by Cherelle Arora RN) Diverticulitis (Acute ~09/2017) Edema extremities (Acute) GERD (gastroesophageal reflux disease) (Acute) H/O: hysterectomy (Acute) HTN (hypertension) (Acute) Hyperlipidemia (Acute) Lower back pain (Acute) Macular pucker, right eye (Acute ~2013) Urethra disorder (Acute ~1969) Walking pneumonia (Acute) Physical Therapy Inpatient Evaluation/Re-Eval M1 PT/OT-IP Prior Functional Status Start: 04/20/18 12:34 Freq: NEEDED Status: Active Protocol: Document 04/20/18 10:30 RCC (Rec: 04/20/18 12:44 RCC [email or web address]) Medical Review Prior Functional Status Medical History Reviewed Yes Mobility and Gait mod. indep. gait with SPC outdoors, no AD indoors, doing OP PT Activities of Daily Living and IADL's modified indep. ADLs Social History Household Members significant other Living Arrangements House Number of Floors (Floors) One Floor Number of Stairs To Enter/Railing? 3 SE L ascending rail, notes she uses a cane in other hand Home Environment High Toilet Walk in Shower Home Equipment Front Wheel Walker Straight Cane Raised Toilet Seat w/Armrests Shower Seat with Backrest Additional Social History Comment Spouse is able to support at home if needed. Pt had L TKA on 03/20/18, doing OP PT locally. She underwent I&D L TKA on 04/19/2018, cultures pending. M2 PT-IP Current Condition Start: 04/20/18 12:34 Freq: NEEDED Status: Active Protocol: Document 04/20/18 10:30 RCC (Rec: 04/20/18 12:44 RCC [email or web address]) Physical Therapy Current Condition Current Condition Evaluation Date 04/20/18 Treatment Diagnosis L TKA I&D 04/19/18, impaired mobility Weight Bearing Status Weight Bearing Status Weight Bear as Tolerated M3 PT-IP Subjective Start: 04/20/18 12:34 Freq: NEEDED Status: Active Protocol: Document 04/20/18 10:30 RCC (Rec: 04/20/18 12:44 RCC [email or web address]) Subjective Physical Therapy Visit Type Type Initial Evaluation Visit Start Time 10:30 Visit Stop Time 11:00 Total Visit Minutes 30 Number of HEALTH SANITARIAN Visits 0 Physical Therapy Visit Comments Patient Comments pt states that she was doing very well with PT prior to this admission. Patient Goals get back to PT, go home Therapy Pain Assessment Pain When Pain Assessed During Mobility Location left knee Intensity 3 Scale Used Numeric (1 - 10) M4 PT-IP Mobility and Gait Start: 04/20/18 12:34 Freq: NEEDED Status: Active Protocol: Document 04/20/18 10:30 RCC (Rec: 04/20/18 12:44 RCC [email or web address]) PT-Bed Mobility Assessment Supine to Sit Supine to Sit Standby Assistance Sit to Supine Sit to Supine Standby Assistance Scooting Scooting to Edge of Bed Independent PT-Transfer Assessment Sit to and From Stand Sit to and from Stand Standby Assistance Equipment Transfer Assistive Device Gait Belt Front Wheeled Walker Transfers Transfer Destination Bed Transfer Technique Stand Step Pivot Transfer Ability Level of Assist Standby Assistance Comments Mobility Comments BP 140/61 prior to mobility Gait Assessment Gait Gait Assistance Required: Standby Assistance Distance (Feet) 150 Assistive Devices Assistive Device Gait Belt Front Wheeled Walker Gait Deviations General Gait Pattern Antalgic Decreased Stride Length Factors Limiting Gait Function Factors Limiting Gait Function Decreased Activity Tolerance Decreased Strength Limited Range of Motion Pain Comments Gait Comments decreased push off LLE PT-Balance Assessment Sitting Balance and Reactions Static Sitting Balance Ability Good Dynamic Sitting Balance Ability Good Standing Balance and Reactions Static Standing Balance Ability Good Dynamic Standing Balance Ability Good Device Used FWW M5 PT-IP Objective Assessments Start: 04/20/18 12:34 Freq: NEEDED Status: Active Protocol: Document 04/20/18 10:30 RCC (Rec: 04/20/18 12:44 RCC [email or web address]) Orientation Orientation/Cognition Orientation Name Age Birthday Month Date Year Day of Week Place Situation Gross Range of Motion Lower Extremity ROM Assessment Left Impaired Impairments L knee AROM: 4-100 degrees Strength Comments Strength Comments did not assess with MMT but able to perform indep. SLR and LAQ seated on EOB Coordination Assessment Gross Coordination Gross Coordination WNL Sensation Assessment Sensation Gross Sensation WNL M6 PT-IP Treatment Start: 04/20/18 12:34 Freq: NEEDED Status: Active Protocol: Document 04/20/18 10:30 RCC (Rec: 04/20/18 12:44 RCC [email or web address]) Physical Therapy Treatment Education Education Provided Safety M7 PT-IP Assessment and Plan Start: 04/20/18 12:34 Freq: NEEDED Status: Active Protocol: Document 04/20/18 10:30 RCC (Rec: 04/20/18 12:44 RCC [email or web address]) PT Summary Assessment and Plan Potential Rehabilitation Potential Good Status of Condition at Evaluation Evolving Summary Impairments Pain ROM Strength Bed Mobility Transfers Gait Activity Tolerance Assessment Summary POD #1 L TKA I&D. Pt able to ambulate 150 ft with FWW and SBA, slight decreased push off on the LLE. Pt overall is mobilizing well, no c/o dizziness or lightheadedness. Pt will require stair training , but likely be able to d/c home when medically stable and resume OP PT when medically cleared. Goals Bed Mobility Goal Independent Transfer Goal Independent Gait Goal Independent Gait Distance 300 Other Goals up/down 3 steps with unilat. rail and SPC, SBA. Days to Meet Goals 5 Frequency of Treatment Frequency Of Treatment Twice a Day Treatment Plan Physical Therapy Treatment Plan Bed Mobility Training Transfer Training Gait Training Therapeutic Exercise Post Op Education Discharge Planning Hot or Cold Pack Neuromuscular Re-ed Other Recommendations and Next Treatment stair and gait training. Focus Recommendations To Nursing Amount of Assist Needed 1 Person Assist Discharge Recommendations PT Discharge Recommendations Home with Assistance Outpatient PT
--- NOTE | 2018-04-20 11:39 | PM.PNPO.1 ---
Subjective Date Patient Seen: 04/20/18 Time Patient Seen: 11:40 Interval history: Pain is [id number]. Denies fever chills. No nausea vomiting. Exam Vital Signs (past 8 hours): - 04/20/18 09:10 Temperature 98.0 F Pulse Rate 84 Respiratory Rate 18 Blood Pressure 119/53 L Pulse Oximetry 96 Oxygen Delivery Method Room Air Oxygen Flow Rate 4 Narrative Exam Narrative: Pleasant 73-year-old female resting comfortably in bed in no apparent distress. Tk dressing is on and functioning. Dressing is clean, dry and intact. Left lower leg is warm and dry. Motor functions intact distally. Sensation grossly intact to light touch. Objective Labs Result Diagrams: 04/20/18 05:14 Labs: Laboratory Results - last 24 hr 04/20/18 05:14 Hgb 11.9 L Hct 36.0 Gram Stain Final 04/19/18-2026 No Organism Seen No organisms seen White blood cells Occasional WBC seen Aerobic Culture for wounds Pending Anaerobic Culture Pending Assessment & Plan Post-op Postoperative Procedures Operation Date: 04/19/18 15:15 Actual Procedures Side Surgeon p Incision and Drainage left knee with poly exchange Left Mani Sanchez MD postop day 1 status post irrigation and debridement with poly exchange left total knee. Left total knee arthroplasty was done March 20, 2018. Patient was placed on Keflex a couple days prior to surgery on April 19, 2018. Her recent knee aspiration did have positive cultures for Staph. Patient currently on IV vancomycin pending culture results. Drain to be discontinued tomorrow.
[2018-04-20 13:20] VITALS: BP 123/63; PULSE 83; RESP 20; TEMP 36.3; O2SAT 96
--- NOTE | 2018-04-20 13:25 | PT.IPTN ---
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, initial encounter (04/19/18) Surgery Performed Operation Date: 04/19/18 15:15 Actual Procedures p Incision and Drainage left knee with poly exchange(Left) - Mani Sanchez MD Physical Therapy Treatment Note M2 PT-IP Current Condition Start: 04/20/18 12:34 Freq: NEEDED Status: Active Protocol: Document 04/20/18 10:30 [facility] (Rec: 04/20/18 12:44 [facility] [id number]) Physical Therapy Current Condition Current Condition Evaluation Date 04/20/18 Treatment Diagnosis L TKA I&D 04/19/18, impaired mobility Weight Bearing Status Weight Bearing Status Weight Bear as Tolerated M3 PT-IP Subjective Start: 04/20/18 12:34 Freq: NEEDED Status: Active Protocol: Document 04/20/18 13:25 RCC (Rec: 04/20/18 15:49 [facility] [id number]) Subjective Physical Therapy Visit Type Type Treatment Note Visit Start Time 13:25 Visit Stop Time 14:05 Total Visit Minutes 40 Number of FIRE CREW SPECIALIST Visits 0 Physical Therapy Visit Comments Patient Comments Pt reports 2/10 pain prior to session. Therapy Pain Assessment Pain When Pain Assessed At Rest Pain Present Pain Present Pain Reported Location left knee Intensity 2 Scale Used Numeric (1 - 10) Pain Management Techniques Apply Cold Timing of Activity with Medications M4 PT-IP Mobility and Gait Start: 04/20/18 12:34 Freq: NEEDED Status: Active Protocol: Document 04/20/18 13:25 RCC (Rec: 04/20/18 15:49 [facility] [id number]) PT-Bed Mobility Assessment Rolling Type of Rolling Log Rolling Level of Assist Independent Supine to Sit Supine to Sit Independent Sit to Supine Sit to Supine Independent Scooting Scooting to Edge of Bed Independent PT-Transfer Assessment Sit to and From Stand Sit to and from Stand Standby Assistance Equipment Transfer Assistive Device Gait Belt Front Wheeled Walker Transfers Transfer Destination Bed Toilet Wheelchair Transfer Technique Stand Step Pivot Transfer Ability Level of Assist Standby Assistance Comments Mobility Comments bed to w/c, transported to stairs, ambulated back to room , on/off toilet, back to bed. Indep. pericare/wiping after urinating in hat in toilet (RN aware) Gait Assessment Gait Gait Assistance Required: Standby Assistance Distance (Feet) 160 Assistive Devices Assistive Device Gait Belt Front Wheeled Walker Gait Deviations General Gait Pattern Antalgic Decreased Stride Length Factors Limiting Gait Function Factors Limiting Gait Function Limited Range of Motion Pain Comments Gait Comments decreased L knee flexion during stance phase, decreased push off on the L. Stair Climbing Assessment Evaluation Level of Assist On Stairs Contact Guard Assistance Devices Stair Climbing Assistive Devices Straight Cane Left Railing Technique/Endurance Stair Climbing Direction Ascend and Descend Stair Climbing Technique Step to Step Number of Steps Climbed 3 Query Text: Stair Climbing Set # Repetitions (reps) 1 Comments Stair Climbing Comments L rail ascending, R descending M5 PT-IP Objective Assessments Start: 04/20/18 12:34 Freq: NEEDED Status: Active Protocol: Document 04/20/18 10:30 RCC (Rec: 04/20/18 12:44 [facility] [email or web address]) Orientation Orientation/Cognition Orientation Name Age Birthday Month Date Year Day of Week Place Situation Gross Range of Motion Lower Extremity ROM Assessment Left Impaired Impairments L knee AROM: 4-100 degrees Strength Comments Strength Comments did not assess with MMT but able to perform indep. SLR and LAQ seated on EOB Coordination Assessment Gross Coordination Gross Coordination WNL Sensation Assessment Sensation Gross Sensation WNL M6 PT-IP Treatment Start: 04/20/18 12:34 Freq: NEEDED Status: Active Protocol: Document 04/20/18 13:25 RCC (Rec: 04/20/18 15:49 [facility] [id number]) Physical Therapy Treatment Exercises Exercises Ankle Pumps Gluteal Sets Quad Sets Education Education Provided Safety Other Treatments Other Treatment Performed B heel raises in standing x5 M7 PT-IP Assessment and Plan Start: 04/20/18 12:34 Freq: NEEDED Status: Active Protocol: Document 04/20/18 13:25 [facility] (Rec: 04/20/18 15:49 [facility] [id number]) PT Summary Assessment and Plan Summary Progress Towards Goals Progressing Toward Goals Assessment Summary POD #1 L TKA I&D. Pt able to perform stairs with appropriate sequencing using step to pattern. Pt without loss of balance during gait or stair management, and is indep. with bed mobility assisting the LLE with the R foot under L leg. Pt is progressing well, likely be able to d/c home when medically stable. She tolerated exercise without c/o increased pain. Goals Bed Mobility Goal Independent Transfer Goal Independent Gait Goal Independent Gait Distance 300 Other Goals up/down 3 steps with unilat. rail and SPC, SBA. Days to Meet Goals 5 Frequency of Treatment Frequency Of Treatment Twice a Day Treatment Plan Other Recommendations and Next Treatment cont. to progress gait, ROM, Focus and LE thera. ex. Recommendations To Nursing Amount of Assist Needed 1 Person Assist Discharge Recommendations PT Discharge Recommendations Home with Assistance Outpatient PT
--- NOTE | 2018-04-20 15:27 | CM.IDA ---
Discharge Planning/Care Management Advanced directive, confirm from FAMILY Start: 04/19/18 18:27 Freq: Q24H Status: Active Protocol: Document 04/19/18 18:27 JKAMRAN (Rec: 04/19/18 21:24 JDG [id number]) Advance Directive, confirm on record Time 21:24 Person contacted Patient Copy received No CM Discharge Assessment Start: 04/20/18 15:19 Freq: Status: Active Protocol: Document 04/20/18 15:20 ANDRES (Rec: 04/20/18 15:27 ANDRES [id number]) Discharge Planning Assessment Assigned Bufferer GONZÁLEZ Tran DPOA/Assigned Designee Name CHEN Clark Contact Information [phone] Advance Directives? Yes: Information mailed to patient History Provided By Patient Prior Living Arrangements House Household Members significant other Type of transporation used prior to Drives own vehicle admit Independent with ADL's Yes: AD/cane outdoors prn Is patient alert and oriented? Yes Barriers to Discharge No Comment Pt POD#1 from I+D of left knee w/liner exchange by Dr Sanchez. Payer: Medicare/ [employer] ([employer]) Uniform. Met w/pt at bedside, explained SW role. Pt familiar to this DIRECTOR OF HOTEL from her prior visit for her total knee replacement in March. Pt is indp at baseline, lives w/ SO Juan. Pt would like to return home upon DC and states it's a waiting game as cultures are pending from I+D;which will educate next steps in POC. Pt feels she has all DME needed at home and assist from SO prn. PT has cleared pt, functionally, for return home. DIRECTOR OF HOTEL team will need to follow closely as culture results come back. Pt does not have good IV home infusion coverage w/ Medicare although her secondary [employer] coverage might be helpful ? Next steps pending need for IV vs po. GONZÁLEZ Brower Discharge Plan Home Transportation Arrangement SO Additional Comment Pending culture results and next steps in medical POC per Ortho team Whiteboard Updated in Patient Room with Yes name and ext. # of Bufferer Review Status In Process
[2018-04-20 16:23] VITALS: BP 106/51; PULSE 74; RESP 18; TEMP 36.6; O2SAT 95
[2018-04-20 19:39] VITALS: BP 103/52; PULSE 80; RESP 18; TEMP 36.9; O2SAT 96
--- NOTE | 2018-04-20 20:48 | PC.NURSE ---
joseph note pt c/o IV site to left hand burning during Vancomycin infusion. Faint redness along vein. Excellent blood return. Warm pack applied and infusion rate slowed. Redness and discomfort resolved. No redness along vein after infusion.
[2018-04-20] MEDS: LOSARTAN 50 MG TABLET 100 MG PO (22:08)
[2018-04-20] MEDS: ATORVASTATIN 10 MG TABLET PO (22:08)
[2018-04-21] VITALS (7 sets, daily range): BP systolic 120–143; BP diastolic 70–82; PULSE 74–84; RESP 16–20; TEMP 36.4–36.8; O2SAT 95–97
[2018-04-21] MEDS: VANCOMYCIN 1,000 MG/200 ML FROZ.PIGGY 200 MG IV (03:33)
[2018-04-21 05:46] LABS: Estimated Glomerular Filt Rate 44.3 mL/min (>60)
[2018-04-21] MEDS: PANTOPRAZOLE 20 MG TABLET PO (06:38)
[2018-04-21] MEDS: OXYCODONE IR 5 MG TABLET PO ×4 (08:06→22:17)
[2018-04-21] MEDS: ASPIRIN EC 81 MG TABLET PO ×2 (08:06→20:22)
[2018-04-21] MEDS: hydrOXYzine pamoate 25 MG CAPSULE PO (08:07)
[2018-04-21] MEDS: ACETAMINOPHEN 325 MG TABLET 975 MG PO ×3 (08:07→20:22)
[2018-04-21] MEDS: MELOXICAM 7.5 MG TABLET PO ×2 (08:07→20:22)
[2018-04-21] MEDS: FUROSEMIDE 20 MG TABLET PO (08:07)
--- NOTE | 2018-04-21 08:58 | PM.PNPO.1 ---
Subjective Date Patient Seen: 04/21/18 Time Patient Seen: 08:58 Interval history: The patient reports she is doing well. She has had her knitting brought in so she has something to do. Exam Vital Signs (past 8 hours): Oxygen Delivery Method Room Air Oxygen Flow Rate 4 Narrative Exam Narrative: Left knee wound is dressed with no drainage on the bandage. Calf is soft. Light touch and motion are intact in the left lower extremity. Objective Labs Result Diagrams: 04/20/18 05:14 04/21/18 05:13 Labs: Laboratory Results - last 24 hr 04/21/18 05:13 Creatinine 1.20 H Estimated GFR 44.3 L Assessment & Plan Post-op Postoperative Procedures Operation Date: 04/19/18 15:15 Actual Procedures Side Surgeon p Incision and Drainage left knee with poly exchange Left Mani Sanchez MD Postoperative day: 2 Postoperative status: doing well Postoperative status narrative: The patient is stable postoperative day 2 after incision and drainage and polyethylene exchange for postoperative total knee infection. Her original total knee was done March 20, 2018. Cultures currently are no growth however they are only preliminary. Postoperative plan: routine post-op care and ambulate Time Spent With Patient less than 15 minutes
--- NOTE | 2018-04-21 10:30 | PT.IPTN ---
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, initial encounter (04/19/18) Surgery Performed Operation Date: 04/19/18 15:15 Actual Procedures p Incision and Drainage left knee with poly exchange(Left) - Mani Sanchez MD Physical Therapy Treatment Note M2 PT-IP Current Condition Start: 04/20/18 12:34 Freq: NEEDED Status: Active Protocol: Document 04/20/18 10:30 RCC (Rec: 04/20/18 12:44 [facility] [id number]) Physical Therapy Current Condition Current Condition Evaluation Date 04/20/18 Treatment Diagnosis L TKA I&D 04/19/18, impaired mobility Weight Bearing Status Weight Bearing Status Weight Bear as Tolerated M3 PT-IP Subjective Start: 04/20/18 12:34 Freq: NEEDED Status: Active Protocol: Document 04/21/18 10:30 RCC (Rec: 04/21/18 11:02 [facility] [id number]) Subjective Physical Therapy Visit Type Type Treatment Note Visit Start Time 10:30 Visit Stop Time 10:55 Total Visit Minutes 25 Number of TONGUE PRESSER Visits 0 Physical Therapy Visit Comments Patient Comments Pt denies any spasms in LLE overnight. M4 PT-IP Mobility and Gait Start: 04/20/18 12:34 Freq: NEEDED Status: Active Protocol: Document 04/21/18 10:30 RCC (Rec: 04/21/18 11:02 RCC [id number]) PT-Bed Mobility Assessment Supine to Sit Supine to Sit Independent Sit to Supine Sit to Supine Independent Scooting Scooting to Edge of Bed Independent PT-Transfer Assessment Sit to and From Stand Sit to and from Stand Standby Assistance Equipment Transfer Assistive Device Gait Belt Front Wheeled Walker Transfers Transfer Destination Bed Transfer Technique Stand Step Pivot Transfer Ability Level of Assist Standby Assistance Gait Assessment Gait Gait Assistance Required: Standby Assistance Distance (Feet) 500 Assistive Devices Assistive Device Gait Belt Front Wheeled Walker Gait Deviations General Gait Pattern Decreased Feet Clearance Factors Limiting Gait Function Factors Limiting Gait Function Limited Range of Motion Pain M5 PT-IP Objective Assessments Start: 04/20/18 12:34 Freq: NEEDED Status: Active Protocol: Document 04/20/18 10:30 RCC (Rec: 04/20/18 12:44 RCC [email or web address]) Orientation Orientation/Cognition Orientation Name Age Birthday Month Date Year Day of Week Place Situation Gross Range of Motion Lower Extremity ROM Assessment Left Impaired Impairments L knee AROM: 4-100 degrees Strength Comments Strength Comments did not assess with MMT but able to perform indep. SLR and LAQ seated on EOB Coordination Assessment Gross Coordination Gross Coordination WNL Sensation Assessment Sensation Gross Sensation WNL M6 PT-IP Treatment Start: 04/20/18 12:34 Freq: NEEDED Status: Active Protocol: Document 04/21/18 10:30 RCC (Rec: 04/21/18 11:02 [facility] [id number]) Physical Therapy Treatment Exercises Exercises Ankle Pumps Quad Sets M7 PT-IP Assessment and Plan Start: 04/20/18 12:34 Freq: NEEDED Status: Active Protocol: Document 04/21/18 10:30 RCC (Rec: 04/21/18 11:02 [facility] [id number]) PT Summary Assessment and Plan Summary Assessment Summary Pt is s/p L TKA I&D day #2. She is mobilizing well, no loss of balance or increased pain with ambulation today. At this time, pt is safe to return home when medically stable. She will benefit from continuation of skilled physical therapy to prevent decrease or worsening ROM of the L knee as well as continued gait and mobility to promote improved activity tolerance. Goals Bed Mobility Goal Independent Transfer Goal Independent Gait Goal Independent Gait Distance 300 Other Goals up/down 3 steps with unilat. rail and SPC, SBA. Days to Meet Goals 5 Frequency of Treatment Frequency Of Treatment Twice a Day Treatment Plan Other Recommendations and Next Treatment L knee flexion ROM- sitting Focus heel slides, continue to progress standing balance and activity tolerance Recommendations To Nursing Amount of Assist Needed 1 Person Assist Discharge Recommendations PT Discharge Recommendations Home with Assistance Outpatient PT
[2018-04-21] MEDS: POLYETHYLENE GLYCOL 3350 17 GM POWD.PACK PO (11:38)
--- NOTE | 2018-04-21 16:00 | PT.IPTN ---
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, initial encounter (04/19/18) Surgery Performed Operation Date: 04/19/18 15:15 Actual Procedures p Incision and Drainage left knee with poly exchange(Left) - Mani Sanchez MD Physical Therapy Treatment Note M2 PT-IP Current Condition Start: 04/20/18 12:34 Freq: NEEDED Status: Active Protocol: Document 04/20/18 10:30 RCC (Rec: 04/20/18 12:44 [facility] [email or web address]) Physical Therapy Current Condition Current Condition Evaluation Date 04/20/18 Treatment Diagnosis L TKA I&D 04/19/18, impaired mobility Weight Bearing Status Weight Bearing Status Weight Bear as Tolerated M3 PT-IP Subjective Start: 04/20/18 12:34 Freq: NEEDED Status: Active Protocol: Document 04/21/18 16:00 RCC (Rec: 04/21/18 16:11 [facility] [id number]) Subjective Physical Therapy Visit Type Type Treatment Note Visit Start Time 15:30 Visit Stop Time 16:00 Total Visit Minutes 30 Number of CCNA Visits 0 Physical Therapy Visit Comments Patient Comments Pt reports overall she is doing quite well. M4 PT-IP Mobility and Gait Start: 04/20/18 12:34 Freq: NEEDED Status: Active Protocol: Document 04/21/18 16:00 RCC (Rec: 04/21/18 16:11 [facility] [id number]) PT-Bed Mobility Assessment Supine to Sit Supine to Sit Independent Sit to Supine Sit to Supine Independent Scooting Scooting to Edge of Bed Independent PT-Transfer Assessment Sit to and From Stand Sit to and from Stand Independent Use of Upper Extremities Equipment Transfer Assistive Device Gait Belt Front Wheeled Walker Transfers Transfer Destination Bed Chair Transfer Technique Stand Step Pivot Transfer Ability Level of Assist Independent Gait Assessment Gait Gait Assistance Required: Standby Assistance Distance (Feet) 500 Assistive Devices Assistive Device Gait Belt Front Wheeled Walker Gait Deviations General Gait Pattern Decreased Feet Clearance Factors Limiting Gait Function Factors Limiting Gait Function Limited Range of Motion Pain M5 PT-IP Objective Assessments Start: 04/20/18 12:34 Freq: NEEDED Status: Active Protocol: Document 04/20/18 10:30 RCC (Rec: 04/20/18 12:44 RCC [id number]) Orientation Orientation/Cognition Orientation Name Age Birthday Month Date Year Day of Week Place Situation Gross Range of Motion Lower Extremity ROM Assessment Left Impaired Impairments L knee AROM: 4-100 degrees Strength Comments Strength Comments did not assess with MMT but able to perform indep. SLR and LAQ seated on EOB Coordination Assessment Gross Coordination Gross Coordination WNL Sensation Assessment Sensation Gross Sensation WNL M6 PT-IP Treatment Start: 04/20/18 12:34 Freq: NEEDED Status: Active Protocol: Document 04/21/18 16:00 RCC (Rec: 04/21/18 16:11 [facility] [id number]) Physical Therapy Treatment Exercises Exercises Heel Slides Knee ROM Measurement 2-100 deg Other Treatments Other Treatment Performed seated heel slides x15 M7 PT-IP Assessment and Plan Start: 04/20/18 12:34 Freq: NEEDED Status: Active Protocol: Document 04/21/18 16:00 [facility] (Rec: 04/21/18 16:11 [facility] [id number]) PT Summary Assessment and Plan Summary Assessment Summary POD #2. Pt able to get in/out of bed without assistance and ambulated without loss of balance. Pt is cleared to d/c home from a physical and mobility stand-point when medically stable Goals Bed Mobility Goal Independent Transfer Goal Independent Gait Goal Independent Gait Distance 300 Other Goals up/down 3 steps with unilat. rail and SPC, SBA. Days to Meet Goals 5 Frequency of Treatment Frequency Of Treatment Twice a Day Treatment Plan Other Recommendations and Next Treatment cont. gait training, LE thera Focus ex Recommendations To Nursing Amount of Assist Needed 1 Person Assist Discharge Recommendations PT Discharge Recommendations Home with Assistance Outpatient PT
--- NOTE | 2018-04-21 16:32 | PC.NURSE ---
1500- assumed care of pt form outgoing shift. PT up walking with PT. Pt does well. pt compliant and cooperative. discussed plan of care with pt. as well as dressing managements and isolation. HV managements and possible DC with this, depending lauren number of factors. Pt uses call light. waits for assistance. bed alarm on. side rails upx3. will continue to monitor pt for safety.
[2018-04-21] MEDS: VANCOMYCIN 1,000 MG/200 ML FROZ.PIGGY 100 MG IV (17:45)
[2018-04-21] MEDS: SODIUM CHLORIDE 0.9% 250 ML 21 ML IV (17:46)
[2018-04-21] MEDS: SODIUM CHLORIDE 0.9% FLUSH 10 ML IV ×2 (17:46→20:23)
[2018-04-21] MEDS: LOSARTAN 50 MG TABLET 100 MG PO (20:21)
[2018-04-21] MEDS: ATORVASTATIN 10 MG TABLET PO (20:22)
[2018-04-22] MEDS: VANCOMYCIN 1,000 MG/200 ML FROZ.PIGGY 100 MG IV (03:57)
[2018-04-22 05:20] VITALS: BP 155/88; PULSE 72; RESP 18; TEMP 36.4; O2SAT 98
[2018-04-22] MEDS: PANTOPRAZOLE 20 MG TABLET PO (06:00)
[2018-04-22 07:40] VITALS: BP 154/87; PULSE 71; RESP 18; TEMP 36.7; O2SAT 96
[2018-04-22] MEDS: POLYETHYLENE GLYCOL 3350 17 GM POWD.PACK PO (08:51)
[2018-04-22] MEDS: hydrOXYzine pamoate 25 MG CAPSULE PO (08:54)
[2018-04-22] MEDS: ACETAMINOPHEN 325 MG TABLET 975 MG PO ×3 (08:54→20:40)
[2018-04-22] MEDS: MELOXICAM 7.5 MG TABLET PO ×2 (08:54→20:40)
[2018-04-22] MEDS: ASPIRIN EC 81 MG TABLET PO ×2 (08:54→20:40)
[2018-04-22] MEDS: FUROSEMIDE 20 MG TABLET PO (08:54)
[2018-04-22] MEDS: DOCUSATE 100 MG CAPSULE PO (08:54)
[2018-04-22] MEDS: SODIUM CHLORIDE 0.9% FLUSH 10 ML IV ×2 (08:55→22:19)
--- NOTE | 2018-04-22 09:37 | PM.PNPO.1 ---
Subjective Date Patient Seen: 04/22/18 Time Patient Seen: 09:37 Interval history: The patient reports feeling well. She is concerned that her neutropenia will affect her treatment for her infected knee. Exam Vital Signs (past 8 hours): - 04/22/18 05:20 04/22/18 07:40 Temperature 97.5 F L 98.1 F Pulse Rate 72 71 Respiratory Rate 18 18 Blood Pressure 155/88 H 154/87 H Pulse Oximetry 98 96 Oxygen Delivery Method Room Air Oxygen Flow Rate 0 Narrative Exam Narrative: Left knee wound is dressed with no significant drainage on the bandage. Calf is soft. Light touch and motion are intact in the left lower extremity. Objective Labs Result Diagrams: 04/20/18 05:14 04/21/18 05:13 Labs: Laboratory Results - last 24 hr 04/21/18 15:30 Vancomycin Trough 17.0 Assessment & Plan Post-op Postoperative Procedures Operation Date: 04/19/18 15:15 Actual Procedures Side Surgeon p Incision and Drainage left knee with poly exchange Left Mani Sanchez MD Postoperative day: 3 Postoperative status: doing well Postoperative status narrative: The patient is medically stable 3 days after I and D and exchange of polyethylene for an infected left total knee replacement. She does have a history of neutropenia. Cultures have returned with Staph aureus which is sensitive to oxacillin. It is resistant or intermediate to fluoroquinolones and resistant to erythromycin. Postoperative plan: routine post-op care and see orders Postoperative plan narrative: We will arrange for home IV therapy with Ance[facility]. A PICC line will be placed today. She will likely be ready for discharge tomorrow. She will follow up as an outpatient with the [facility] for discussion of treatment of the neutropenia. Her primary orthopedic surgeon, Dr. Sanchez, will be in contact with [facility]. Her drain will be discontinued today. Time Spent With Patient less than 15 minutes
--- NOTE | 2018-04-22 10:58 | DI.RAD.S_ITS ---
PROCEDURE: XR CHEST FOR PICC 1V INDICATIONS: PICC COMPARISON: None. FINDINGS: PICC was placed by the intravenous therapy team from the right side. Fluoroscopic spot film demonstrates tip of PICC in the distal SVC. IMPRESSION: Tip of PICC lies within the distal SVC. Dictated by: Lexie Feliz MD, PhD on 04/22/2018 at 11:41 Approved by: Lexie Feliz MD, PhD on 04/22/2018 at 11:42
[2018-04-22] MEDS: CEFAZOLIN 1 GM/50 ML FROZ.PIGGY IV ×2 (11:55→21:54)
--- NOTE | 2018-04-22 12:30 | PT.IPTN ---
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, initial encounter (04/19/18) Surgery Performed Operation Date: 04/19/18 15:15 Actual Procedures p Incision and Drainage left knee with poly exchange(Left) - Mani Sanchez MD Physical Therapy Treatment Note M2 PT-IP Current Condition Start: 04/20/18 12:34 Freq: NEEDED Status: Active Protocol: Document 04/20/18 10:30 RCC (Rec: 04/20/18 12:44 RCC [email or web address]) Physical Therapy Current Condition Current Condition Evaluation Date 04/20/18 Treatment Diagnosis L TKA I&D 04/19/18, impaired mobility Weight Bearing Status Weight Bearing Status Weight Bear as Tolerated M3 PT-IP Subjective Start: 04/20/18 12:34 Freq: NEEDED Status: Active Protocol: Document 04/22/18 08:44 EA (Rec: 04/22/18 09:01 EA [id number]) Subjective Physical Therapy Visit Type Type Treatment Note Visit Start Time 08:20 Visit Stop Time 08:45 Total Visit Minutes 25 Physical Therapy Visit Comments Patient Comments Pt reports that she has been walking in the hallway few times last night w/ help and no new complaint at this time. Pt agreeable to try stairs using cane prior to discharge if possible today. Patient Goals Indep in all mobility. Therapy Pain Assessment Pain When Pain Assessed At Rest Pain Present Pain Present Pain Reported Location left knee Intensity 2 M4 PT-IP Mobility and Gait Start: 04/20/18 12:34 Freq: NEEDED Status: Active Protocol: Document 04/22/18 08:44 EA (Rec: 04/22/18 09:01 EA [id number]) PT-Bed Mobility Assessment Supine to Sit Supine to Sit Independent Sit to Supine Sit to Supine Independent Scooting Scooting to Edge of Bed Independent PT-Transfer Assessment Sit to and From Stand Sit to and from Stand Independent Use of Upper Extremities Equipment Transfer Assistive Device Gait Belt Front Wheeled Walker Transfers Transfer Destination Bed Chair Transfer Technique Stand Step Pivot Transfer Ability Level of Assist Independent Comments Mobility Comments Pt exhibits high safety awareness and ability to perform mobility w/ no signs of apprehension. Gait Assessment Gait Gait Assistance Required: Standby Assistance Distance (Feet) 520 Assistive Devices Assistive Device Gait Belt Front Wheeled Walker Gait Deviations General Gait Pattern Decreased Feet Clearance Factors Limiting Gait Function Factors Limiting Gait Function Decreased Strength Pain Stair Climbing Assessment Evaluation Level of Assist On Stairs Standby Assistance Devices Stair Climbing Assistive Devices Small Base Quad Cane Technique/Endurance Stair Climbing Direction Ascend Stair Climbing Technique Step to Step Number of Steps Climbed 4 Query Text: Stair Climbing Set # Repetitions (reps) 1 Comments Stair Climbing Comments L rail ascending, R descending , SBQC used due to no available STC. Patient perform good sequncing during stait with decreased feed back. M5 PT-IP Objective Assessments Start: 04/20/18 12:34 Freq: NEEDED Status: Active Protocol: Document 04/20/18 10:30 RCC (Rec: 04/20/18 12:44 RCC [email or web address]) Orientation Orientation/Cognition Orientation Name Age Birthday Month Date Year Day of Week Place Situation Gross Range of Motion Lower Extremity ROM Assessment Left Impaired Impairments L knee AROM: 4-100 degrees Strength Comments Strength Comments did not assess with MMT but able to perform indep. SLR and LAQ seated on EOB Coordination Assessment Gross Coordination Gross Coordination WNL Sensation Assessment Sensation Gross Sensation WNL M6 PT-IP Treatment Start: 04/20/18 12:34 Freq: NEEDED Status: Active Protocol: Document 04/22/18 08:44 EA (Rec: 04/22/18 09:01 EA [id number]) Physical Therapy Treatment Exercises Exercises Ankle Pumps Gluteal Sets Quad Sets Heel Slides M7 PT-IP Assessment and Plan Start: 04/20/18 12:34 Freq: NEEDED Status: Active Protocol: Document 04/22/18 08:44 EA (Rec: 04/22/18 09:01 EA [id number]) PT Summary Assessment and Plan Potential Rehabilitation Potential Excellent Status of Condition at Evaluation Stable Summary Impairments Pain ROM Strength Activity Tolerance Assessment Summary Pt demonstrates near functional independence in transfers and mobility, however still requires AD and supervision within the hospital. Patient is safe to discharge from skilled PT and discharge to home once medically stable. Goals Bed Mobility Goal Independent Transfer Goal Independent Gait Goal Independent Gait Distance 350 Days to Meet Goals 1 Frequency of Treatment Frequency Of Treatment Twice a Day Treatment Plan Physical Therapy Treatment Plan Gait Training Therapeutic Exercise Other Recommendations and Next Treatment cont. gait training, LE thera Focus exercises. Recommendations To Nursing Amount of Assist Needed Standby Assistance Discharge Recommendations PT Discharge Recommendations Home with Assistance Outpatient PT
--- NOTE | 2018-04-22 13:38 | CM.DPC ---
Addendum entered by GONZÁLEZ Elizondo 04/22/18 15:09: ADD: Per David with [facility], met bedside with pt and Sig Other and answered their multiple questions and he feels they will be a good candidate for home infusion. NICKO printed off requested labs and PICC placement info and SW to fax MD note or order with the Ancef dose and duration at discharge. BF Original Note: DCP IV-Abx planning at d/c Per Dr. Jimenez, pt will need IV-Abx Ancef Q8 at d/c for likely 6 weeks and requesting SW to set up home infusion plan. Pt has MCR and Reg Uniform for insurance and Medicare does not cover home infusion. SW faxed clinicals to [facility] and called to request review of her meds and insurance to determine out of pocket expense. Return call from David at [facility] who states if pt has not met her $500 max deductible (which likely she will with this admit or soon) then she would pay $108 a week until deductible met. NICKO met bedside with pt and sig other Norm and explained role and updated white board. NICKO discussed the IV-Abx at d/c options including the above information regarding [facility] and possible out of pocket. NICKO provided the [facility] brochure and they are both very appreciative and agreeable to tello Hernandez from [facility], meeting with them bedside to further discuss and answer questions. NICKO also discussed the option of SNF rehab at d/c for IV-Abx and pt adamantly refused due to her mother and late both passing away in SNF facilities. Both pt and Sig Other feel comfortable with plan of d/c home with home infusion and any possible out of pocket expense. NICKO also provided them with the pt's Medicare Rights and they acknowledged understanding and pt signed her Medicare Message. SW provided them with a copy per their request. Plan: NICKO to follow closely after David from [facility] meet with pt and Sig Other bedside today to confirm they are still agreeable with home and [facility] for IV-Abx at d/c. GONZÁLEZ Elizondo
[2018-04-22 14:35] VITALS: BP 149/76; PULSE 78; RESP 18; TEMP 36.5; O2SAT 97
[2018-04-22] MEDS: OXYCODONE IR 5 MG TABLET PO ×2 (14:42→19:52)
--- NOTE | 2018-04-22 15:04 | PC.NURSE ---
Pt has had an upset stomach today with several BMs and cramping sensation. Taking light meals and sips of soda for relief. Tearful at times when advised she would need IV abx at home. PICC line placed today and seen by trip rider. H/V drain removed today.
--- NOTE | 2018-04-22 15:30 | PT.IPTN ---
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, initial encounter (04/19/18) Surgery Performed Operation Date: 04/19/18 15:15 Actual Procedures p Incision and Drainage left knee with poly exchange(Left) - Mani Sanchez MD Physical Therapy Treatment Note M2 PT-IP Current Condition Start: 04/20/18 12:34 Freq: NEEDED Status: Active Protocol: Document 04/20/18 10:30 RCC (Rec: 04/20/18 12:44 RCC [email or web address]) Physical Therapy Current Condition Current Condition Evaluation Date 04/20/18 Treatment Diagnosis L TKA I&D 04/19/18, impaired mobility Weight Bearing Status Weight Bearing Status Weight Bear as Tolerated M3 PT-IP Subjective Start: 04/20/18 12:34 Freq: NEEDED Status: Active Protocol: Document 04/22/18 14:44 CLB (Rec: 04/22/18 15:29 CLB [id number]) Subjective Physical Therapy Visit Type Type Treatment Note Visit Start Time 14:44 Visit Stop Time 15:10 Total Visit Minutes 26 Number of SITE ACQUISITION MANAGER Visits 1 Physical Therapy Visit Comments Patient Comments Pt agreeable to ambulate. Therapy Pain Assessment Pain When Pain Assessed During Mobility Pain Present Pain Present Pain Reported Location left knee Intensity 3 Scale Used Numeric (1 - 10) M4 PT-IP Mobility and Gait Start: 04/20/18 12:34 Freq: NEEDED Status: Active Protocol: Document 04/22/18 14:44 CLB (Rec: 04/22/18 15:29 CLB [id number]) PT-Bed Mobility Assessment Supine to Sit Supine to Sit Independent Sit to Supine Sit to Supine Independent Scooting Scooting to Edge of Bed Independent PT-Transfer Assessment Sit to and From Stand Sit to and from Stand Independent Use of Upper Extremities Equipment Transfer Assistive Device Gait Belt Front Wheeled Walker Transfers Transfer Destination Bed Toilet Transfer Technique Stand Step Pivot Comments Mobility Comments Pt is independent in all mobility. Gait Assessment Gait Gait Assistance Required: Standby Assistance Distance (Feet) 520 Assistive Devices Assistive Device Gait Belt Front Wheeled Walker Gait Deviations General Gait Pattern Decreased Feet Clearance Factors Limiting Gait Function Factors Limiting Gait Function Decreased Strength Pain M5 PT-IP Objective Assessments Start: 04/20/18 12:34 Freq: NEEDED Status: Active Protocol: Document 04/20/18 10:30 RCC (Rec: 04/20/18 12:44 RCC [email or web address]) Orientation Orientation/Cognition Orientation Name Age Birthday Month Date Year Day of Week Place Situation Gross Range of Motion Lower Extremity ROM Assessment Left Impaired Impairments L knee AROM: 4-100 degrees Strength Comments Strength Comments did not assess with MMT but able to perform indep. SLR and LAQ seated on EOB Coordination Assessment Gross Coordination Gross Coordination WNL Sensation Assessment Sensation Gross Sensation WNL M6 PT-IP Treatment Start: 04/20/18 12:34 Freq: NEEDED Status: Active Protocol: Document 04/22/18 14:44 CLB (Rec: 04/22/18 15:29 CLB [id number]) Physical Therapy Treatment Exercises Exercises Ankle Pumps Gluteal Sets Quad Sets Heel Slides M7 PT-IP Assessment and Plan Start: 04/20/18 12:34 Freq: NEEDED Status: Active Protocol: Document 04/22/18 14:44 CLB (Rec: 04/22/18 15:29 CLB [id number]) PT Summary Assessment and Plan Summary Assessment Summary Pt able to independently get OOB and transfer to toilet where pt performed all pericare. Pt able to safely stand at sink to wash hands. Pt ambulated ~520ft SBA with pain increasing to 3/10. Pt seems able to d/c home with assist when medically stable. Goals Bed Mobility Goal Independent Transfer Goal Independent Gait Distance 350 Other Goals up/down 3 steps with unilat. rail and SPC, SBA. Days to Meet Goals 1 Frequency of Treatment Frequency Of Treatment Twice a Day Treatment Plan Physical Therapy Treatment Plan Gait Training Therapeutic Exercise Other Recommendations and Next Treatment cont. gait training, LE thera Focus exercises. Recommendations To Nursing Amount of Assist Needed Standby Assistance Discharge Recommendations PT Discharge Recommendations Home with Assistance Outpatient PT
[2018-04-22 15:32] VITALS: BP 149/64; PULSE 75; RESP 18; TEMP 37.1; O2SAT 95
[2018-04-22 19:54] VITALS: BP 139/70; PULSE 86; RESP 18; TEMP 36.9
[2018-04-22 20:40] VITALS: BP 137/75; PULSE 84
[2018-04-22] MEDS: LOSARTAN 50 MG TABLET 100 MG PO (20:40)
[2018-04-22] MEDS: ATORVASTATIN 10 MG TABLET PO (20:40)
--- NOTE | 2018-04-22 22:21 | PC.NURSE ---
Pt has had uneventful evening. Med at 1950 for discomfort w/good relief. PICC RA intact/patent. Pt hoping to go home tomorrow. Will D/C on IV ABO's . Call light w/in reach, calls appropriately for assistance. Continue w/plan of care.
[2018-04-23 00:21] VITALS: BP 140/66; PULSE 77; RESP 16; TEMP 36.9; O2SAT 95
[2018-04-23 03:57] LABS: Vancomycin Trough 12.6 ug/mL (10-20)
[2018-04-23 04:00] VITALS: BP 152/76; PULSE 84; RESP 16; TEMP 36.6; O2SAT 98
[2018-04-23] MEDS: SODIUM CHLORIDE 0.9% FLUSH 10 ML IV ×2 (06:32→09:14)
[2018-04-23] MEDS: CEFAZOLIN 1 GM/50 ML FROZ.PIGGY IV ×2 (06:32→13:38)
[2018-04-23] MEDS: PANTOPRAZOLE 20 MG TABLET PO (06:32)
[2018-04-23 08:05] VITALS: BP 140/75; PULSE 84; RESP 16; TEMP 36.8; O2SAT 96
[2018-04-23] MEDS: ACETAMINOPHEN 325 MG TABLET 975 MG PO (09:10)
[2018-04-23] MEDS: FUROSEMIDE 20 MG TABLET PO (09:11)
[2018-04-23] MEDS: POLYETHYLENE GLYCOL 3350 17 GM POWD.PACK PO (09:11)
[2018-04-23] MEDS: MELOXICAM 7.5 MG TABLET PO (09:11)
[2018-04-23] MEDS: ASPIRIN EC 81 MG TABLET PO (09:11)
[2018-04-23] MEDS: DOCUSATE 100 MG CAPSULE PO (09:11)
--- NOTE | 2018-04-23 09:15 | PM.DS.1 ---
History of Present Illness Date Patient Seen: 04/23/18 Time Patient Seen: 09:15 Chief complaint: [id number] I&D of left knee w/polyethylene liner exchan Narrative: Hospital day 5, postop day 4 following left total knee arthroplasty I and D and poly exchange by Dr. Sanchez. Patient remained stable postoperatively. She did have a Hemovac drain removed yesterday. Wound culture noted Staph aureus. Patient's IV antibiotic was changed from vancomycin to Ancef yesterday. Patient does have a PICC line. Patient does have history of neutropenia and [facility] Dr. Michael Aguilar in the past. Discharge Providers Date of admission: 04/19/18 13:09 Primary care physician: Joy Woo MD Consults: 04/19/18 18:02 Consult to Discharge Planning Routine Comment: Consult to Physical Therapy Evaluate & Treat Comment: Physician Instructions: postop TKA protocol Consult to Respiratory Therapy Evaluate & Treat Comment: Physician Instructions: Evaluate and treat 04/22/18 09:29 Consult to Home Health Routine Comment: Reason For Exam: Home IV infusion Discharge provider: Rafy Nation PA-C Discharge Date: 04/23/18 Summary Discharge Diagnosis: Status post I and D left total knee arthroplasty with poly exchange. Hospital Course: Patient brought to hospital on 04/19/2018 for above noted surgery. She remained stable postoperatively. Initially on vancomycin and then changed to Ancef after cultures noted Staph aureus. Did have a PICC line placed. Patient ready for discharge home on postop day 4. She is scheduled for IV home infusion with Ancef q.8h. Also given referral to [facility] [place] to follow-up on her neutropenia. Status at Discharge Cognitive/behavioral status at discharge: Alert, oriented no acute distress. Functional status at discharge: uses cane/walker Overall status at discharge: patient is progressing back to baseline Time Spent with Patient Less than 30 minutes Exam Vital Signs (past 8 hours): - 04/23/18 04:00 04/23/18 08:05 Temperature 97.8 F 98.3 F Pulse Rate 84 84 Respiratory Rate 16 16 Blood Pressure 152/76 H 140/75 Pulse Oximetry 98 96 Oxygen Delivery Method Room Air Oxygen Flow Rate 0 Narrative Exam Narrative: Left leg. Tk dressing to left knee is dry without drainage or inflammation. No calf pain or swelling. Pulses symmetrical. Objective Labs Result Diagrams: 04/20/18 05:14 04/21/18 05:13 Labs: Laboratory Results - last 24 hr 04/23/18 03:26 Vancomycin Trough 12.6 Discharge Plan Discharge Plan Patient Disposition: Home Discharge comment: Patient discharge to home with home IV infusion for Ancef 1 g q.8h x6 weeks. Patient will also follow up at cancer center for neutropenia evaluation and treatment. Discharge Med Rec/Prescriptions Prescriptions: New acetaminophen 325 mg Tablet 975 mg PO TID Qty: 30 RF: 0 oxycodone 5 mg Tablet 5 mg PO Q3HR PRN (Reason: Pain, Moderate (4-6)) Qty: 30 RF: 0 hydroxyzine pamoate 25 mg Capsule 25 mg PO Q4H PRN (Reason: Spasms) Qty: 30 RF: 0 cefazolin 1 gram recon soln 1 gram IV Q8H 42 Days RF: 0 Continued sumatriptan succinate [Imitrex] 50 MG tablet 1 tab PO TID PRN (Reason: migraines) Qty: 0 RF: 0 aspirin 81 MG tablet,delayed release (DR/EC) 81 mg PO BID Qty: 0 RF: 0 omeprazole 20 MG capsule,delayed release(DR/EC) 20 mg PO QDAY Qty: 0 RF: 0 Multi For Her 18 mg iron-600 mcg-40 mcg Capsule 1 tab-cap PO DAILY Qty: 0 RF: 0 losartan 100 MG tablet 100 mg PO BEDTIME Qty: 0 RF: 0 fluticasone [Flonase Allergy Relief] 50 mcg/actuation [place],Suspension 1 spray Intranasal QDAY Qty: 0 RF: 0 furosemide 20 mg Tablet 20 mg PO DAILY RF: 0 ascorbic acid (vitamin C) [Vitamin C] 500 mg Capsule, Extended Release 500 mg PO DAILY RF: 0 atorvastatin [Lipitor] 10 mg Tablet 10 mg PO BEDTIME RF: 0 calcium carbonate-vitamin D3 [Calcium 500 + D (D3)] 500 mg(1,250mg) -125 unit Tablet 1 tab PO DAILY RF: 0 meloxicam 7.5 mg Tablet 7.5 mg PO BID RF: 0 Discontinued cephalexin [Keflex] 500 mg Capsule 500 mg PO QID RF: 0 Follow up/Referrals: Joy Woo MD [Primary Care Provider] - Rafy Nation PA-C [[facility]] - [facility] [Provider Group] (Patient needs to be seen at [facility]) Provider Discharge Instructions Diet: Diet as Tolerated Activity: Ambulate as tolerated Skin/Wound/Dressing Care Report to your healthcare provider any signs of infection, such as:: chills, fever, night sweats, increased pain, unusual drainage and unusual redness Dressing: Keep PIC0 dressing in place until postop visit. Discharge Data Primary Care Provider: Joy Woo Attending Provider: Mani Sanchez Admit Date/Time: 04/19/18 13:09
--- NOTE | 2018-04-23 10:14 | PT.IPTN ---
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, initial encounter (04/19/18) Surgery Performed Operation Date: 04/19/18 15:15 Actual Procedures p Incision and Drainage left knee with poly exchange(Left) - Mani Sanchez MD Physical Therapy Treatment Note M2 PT-IP Current Condition Start: 04/20/18 12:34 Freq: NEEDED Status: Active Protocol: Document 04/20/18 10:30 RCC (Rec: 04/20/18 12:44 RCC [email or web address]) Physical Therapy Current Condition Current Condition Evaluation Date 04/20/18 Treatment Diagnosis L TKA I&D 04/19/18, impaired mobility Weight Bearing Status Weight Bearing Status Weight Bear as Tolerated M3 PT-IP Subjective Start: 04/20/18 12:34 Freq: NEEDED Status: Active Protocol: Document 04/23/18 09:15 CLB (Rec: 04/23/18 10:14 CLB [id number]) Subjective Physical Therapy Visit Type Type Treatment Note Visit Start Time 09:15 Visit Stop Time 09:48 Total Visit Minutes 33 Number of RELIGIOUS EDUCATION COORDINATOR Visits 2 Physical Therapy Visit Comments Patient Comments Pt agreeable to ambulate. Therapy Pain Assessment Pain When Pain Assessed During Mobility Pain Present Pain Present Pain Reported Location left knee Intensity 2 Scale Used Numeric (1 - 10) M4 PT-IP Mobility and Gait Start: 04/20/18 12:34 Freq: NEEDED Status: Active Protocol: Document 04/23/18 09:15 CLB (Rec: 04/23/18 10:14 CLB [id number]) PT-Bed Mobility Assessment Supine to Sit Supine to Sit Independent Sit to Supine Sit to Supine Independent Scooting Scooting to Edge of Bed Independent PT-Transfer Assessment Sit to and From Stand Sit to and from Stand Independent Use of Upper Extremities Equipment Transfer Assistive Device Gait Belt Front Wheeled Walker Transfers Transfer Destination Chair Toilet Transfer Technique Stand Step Pivot Comments Mobility Comments Pt is independent in all mobility with good safety awareness and balance. Gait Assessment Gait Gait Assistance Required: Standby Assistance Distance (Feet) 520 Assistive Devices Assistive Device Gait Belt Front Wheeled Walker Factors Limiting Gait Function Factors Limiting Gait Function Decreased Strength Pain Stair Climbing Assessment Evaluation Level of Assist On Stairs Standby Assistance Devices Stair Climbing Assistive Devices Small Base Quad Cane Technique/Endurance Stair Climbing Direction Ascend and Descend Stair Climbing Technique Step to Step Number of Steps Climbed 3 Query Text: Stair Climbing Set # Repetitions (reps) 1 Comments Stair Climbing Comments L rail ascending, R descending , SBQC used due to no available STC. M5 PT-IP Objective Assessments Start: 04/20/18 12:34 Freq: NEEDED Status: Active Protocol: Document 04/20/18 10:30 RCC (Rec: 04/20/18 12:44 RCC [email or web address]) Orientation Orientation/Cognition Orientation Name Age Birthday Month Date Year Day of Week Place Situation Gross Range of Motion Lower Extremity ROM Assessment Left Impaired Impairments L knee AROM: 4-100 degrees Strength Comments Strength Comments did not assess with MMT but able to perform indep. SLR and LAQ seated on EOB Coordination Assessment Gross Coordination Gross Coordination WNL Sensation Assessment Sensation Gross Sensation WNL M6 PT-IP Treatment Start: 04/20/18 12:34 Freq: NEEDED Status: Active Protocol: Document 04/23/18 09:15 CLB (Rec: 04/23/18 10:14 CLB [id number]) Physical Therapy Treatment Exercises Exercises Ankle Pumps Gluteal Sets Heel Slides Straight Leg Raises Short Arc Quads Knee ROM Measurement 2-100 deg Other Treatments Other Treatment Performed seated heel slides x15 M7 PT-IP Assessment and Plan Start: 04/20/18 12:34 Freq: NEEDED Status: Active Protocol: Document 04/23/18 09:15 CLB (Rec: 04/23/18 10:14 CLB [id number]) PT Summary Assessment and Plan Summary Assessment Summary Pt ambulating well with small step through gait pattern. Pt has good balance and safety awareness with gait, standing at sink and transfers. Pt able to climb stairs with step to step with proper sequencing with use of SBQC. Pt seems able to d/c home with assist when medically stable. Goals Bed Mobility Goal Independent Transfer Goal Independent Gait Distance 350 Other Goals up/down 3 steps with unilat. rail and SPC, SBA. Days to Meet Goals 1 Frequency of Treatment Frequency Of Treatment Twice a Day Treatment Plan Physical Therapy Treatment Plan Gait Training Therapeutic Exercise Other Recommendations and Next Treatment Pt to d/c home with assist Focus Recommendations To Nursing Amount of Assist Needed Standby Assistance Discharge Recommendations PT Discharge Recommendations Home with Assistance Outpatient PT
--- NOTE | 2018-04-23 12:24 | CM.DPC ---
Addendum entered by Sofya Waite 04/23/18 12:44: JENNIFER signed by patient this AM. Original Note: DCP/continued: Reviewed chart. Order obtained from Orthopedics for patient to discharge home today with IV abx. D/C plan has been started with [facility]. GONZÁLEZ obtained final script for IV abx and faxed to [facility] with d/c summary. Met with patient and plan confirmed. Spoke with Ysabel at [facility]. She confirmed that order/script received. Patient will be met at home by [facility] today at approximately 3:00pm. They will provide teaching and medication. Patient aware and agreeable to above plan. Spoke with RN/Rosa she will be giving patient her afternoon dose of IV abx at approximately 1:30pm prior to d/c. P: Home today with [facility] for IV abx. GONZÁLEZ Fischer
[2018-04-23 13:15] VITALS: BP 142/63; PULSE 80; RESP 18; TEMP 37; O2SAT 97
== END 2018-04-23 14:43 | disposition home or self-care (01) | DRG 486 ==
PROVIDERS: Admitting Provider Orthopaedic Surgery; Family Provider Nurse Practitioner Gerontology; PCP Internal Medicine; Visit Provider Orthopaedic Surgery
PROC: 0SPD09Z Removal of Liner from Left Knee Joint, Open Approach (ICD-10-PCS; principal; 2018-04-19 15:15)
DX: T84.54XA Infection and inflammatory reaction due to internal left knee prosthesis, initial encounter (principal); L03.116 Cellulitis of left lower limb; T81.41XA Infection following a procedure, superficial incisional surgical site, initial encounter; I10 Essential (primary) hypertension; E78.5 Hyperlipidemia, unspecified; D70.9 Neutropenia, unspecified; B95.61 Methicillin susceptible Staphylococcus aureus infection as the cause of diseases classified elsewhere
CPT/HCPCS: 36415; 36573; 36592; 80053; 80202; 82565; 85014; 85018; 85027; 85651; 86140; 87070; 87075; 87077; 87147; 87186; 87205; 97110; 97116; 97162; C1776; C9290; J1100; J1170; J2704; J3010; J3370

== ENCOUNTER → 2018-05-27 14:37 | Outpatient (CLI) | payer MEDICARE, OTHER, SELFPAY ==
[2018-04-19 18:19] VITALS: BMI 26.4
[2018-05-27 15:47] LABS: C-Reactive Protein Quant < 0.5 mg/dL (<1.0)
[2018-05-27 17:08] LABS: Erythrocyte Sedimentation Rate 12 MM/HR (0-20)
== END ==
PROVIDERS: Family Provider Internal Medicine; PCP Internal Medicine; Visit Provider Orthopaedic Surgery
DX: L03.116 Cellulitis of left lower limb (principal); Z96.652 Presence of left artificial knee joint; T84.54XD Infection and inflammatory reaction due to internal left knee prosthesis, subsequent encounter
CPT/HCPCS: 36415; 85651; 86140

== ENCOUNTER → 2018-06-22 11:38 | Outpatient (CLI) | payer MEDICARE, OTHER, SELFPAY ==
[2018-04-19 18:19] VITALS: BMI 26.4
--- NOTE | 2018-06-22 | DI.MG.S_ITS ---
BILATERAL DIGITAL SCREENING MAMMOGRAM 3D/2D WITH CAD: 06/22/2018 CLINICAL: Routine screening. Comparison is made to exams dated: 06/16/2017 mammogram, 01/20/2016 mammogram, and 01/07/2015 mammogram - [facility]. There are scattered fibroglandular elements in both breasts. Current study was also evaluated with a Computer Aided Detection (CAD) system. No significant masses, calcifications, or other findings are seen in either breast. There has been no significant interval change. IMPRESSION: NEGATIVE There is no mammographic evidence of malignancy. A 1 year screening mammogram is recommended. This exam was interpreted at Station ID: [id number]. NOTE: For mammograms, a report in lay terms will be sent to the patient. Approximately 15% of breast malignancies will not be visualized mammographically. In the management of a palpable breast mass, a negative mammogram must not discourage biopsy of a clinically suspicious lesion. Electronically Signed By: Liusa jiménez/colby:06/24/2018 08:56:07 letter sent: Normal Exam ACR BI-RADS Category 1: Negative [id number]
== END ==
PROVIDERS: Family Provider Internal Medicine; PCP Internal Medicine; Visit Provider Internal Medicine
DX: Z12.31 Encounter for screening mammogram for malignant neoplasm of breast (principal)
CPT/HCPCS: 77063; 77067

== ENCOUNTER → 2018-07-01 17:40 | Outpatient (CLI) | payer MEDICARE, OTHER, SELFPAY ==
[2018-04-19 18:19] VITALS: BMI 26.4
[2018-07-01 18:44] LABS: Add Manual Diff / Slide Review NO; Basophils Absolute Auto 0 /uL (0-100); Basophils Percent Auto 0.7 % (0-2); Eosinophils Absolute Auto 200 /uL (0-450); Eosinophils Percent Auto 3.9 % (2-4); Hematocrit 42.1 % (36-46); Hemoglobin 13.7 g/dL (12.0-16.0); Lymphocytes Absolute Auto 2800 /uL (1100-4500); Lymphocytes Percent Auto 63.1 % (25-40); Mean Corpuscular HGB Conc 32.5 % (30-36); Mean Corpuscular Volume 89.2 fL (80-100); Monocytes Absolute Auto 1000 /uL (0-900); Monocytes Percent Auto 22.9 % (3-14); Neutrophils Absolute Auto 400 /uL (1500-7000); Neutrophils Percent Auto 9.4 % (50-75); Platelet Count 186 X10^3/uL (150-400); Red Blood Cell Count 4.72 X10^6/uL (4.0-5.2); Red Cell Distribution Width 13.2 % (11.6-14.8); White Blood Cell Count 4.4 X10^3/uL (4.5-11.0)
== END ==
PROVIDERS: Family Provider Internal Medicine; PCP Internal Medicine
DX: D70.9 Neutropenia, unspecified (principal)
CPT/HCPCS: 36415; 85025

== ENCOUNTER → 2018-07-11 13:15 | Outpatient (CLI) | payer MEDICARE, OTHER, SELFPAY ==
[2018-04-19 18:19] VITALS: BMI 26.4
[2018-07-11 13:43] LABS: Hematocrit 42.4 % (36-46); Hemoglobin 13.8 g/dL (12.0-16.0); Mean Corpuscular HGB Conc 32.5 % (30-36); Mean Corpuscular Hemoglobin 28.8 PG (26-34); Mean Corpuscular Volume 88.5 fL (80-100); Platelet Count 166 X10^3/uL (150-400); Red Blood Cell Count 4.79 X10^6/uL (4.0-5.2); Red Cell Distribution Width 13.3 % (11.6-14.8)
[2018-07-11 13:44] LABS: Add Manual Diff / Slide Review YES
[2018-07-11 14:04] LABS: Erythrocyte Sedimentation Rate 9 MM/HR (0-20)
[2018-07-11 14:15] LABS: Neutrophils Absolute Manual 240 /uL (3000-5900); Total Cells Counted 100
[2018-07-11 14:16] LABS: RBC Morphology Normal Morphology
[2018-07-11 14:48] LABS: C-Reactive Protein Quant < 0.5 mg/dL (<1.0)
== END ==
PROVIDERS: Family Provider Internal Medicine; PCP Internal Medicine; Visit Provider Orthopaedic Surgery
DX: L03.116 Cellulitis of left lower limb (principal); T84.54XD Infection and inflammatory reaction due to internal left knee prosthesis, subsequent encounter; Z96.652 Presence of left artificial knee joint
CPT/HCPCS: 36415; 85025; 85651; 86140

== ENCOUNTER → 2019-01-13 16:50 | Outpatient (CLI) | payer MEDICARE, OTHER, SELFPAY ==
[2018-04-19 18:19] VITALS: BMI 26.4
[2019-01-13 17:54] LABS: Cholesterol 182 mg/dL (140-199); HDL Cholesterol 47 mg/dL (40-60); LDL Cholesterol Calculated 106 mg/dL (<100); Triglycerides 144 mg/dL (35-150)
== END ==
PROVIDERS: PCP Internal Medicine; Visit Provider Internal Medicine
DX: E78.2 Mixed hyperlipidemia (principal)
CPT/HCPCS: 36415; 80061

== ENCOUNTER → 2019-08-08 13:06 | Outpatient (CLI) | payer MEDICARE, OTHER, SELFPAY ==
[2018-04-19 18:19] VITALS: BMI 26.4
--- NOTE | 2019-08-08 | DI.RAD.S_ITS ---
PROCEDURE: XR ANKLE RT MIN 3V INDICATIONS: Pain in right ankle and joints of right foot TECHNIQUE: 3 views of the ankle were acquired. COMPARISON: None. FINDINGS: Bones: No fractures or dislocations. Ankle mortise is normally aligned. No suspicious bony lesions. Soft tissues: No tibiotalar joint effusion. Achilles tendon appears normal. IMPRESSION: No trauma found. Dictated by: Phillip Dickson M.D. on 08/08/2019 at 14:57 Approved by: Phillip Dickson M.D. on 08/08/2019 at 14:58
== END ==
PROVIDERS: PCP Internal Medicine; Referring Provider Physician Assistant; Visit Provider Physician Assistant
DX: M25.571 Pain in right ankle and joints of right foot (principal)
CPT/HCPCS: 73610

== ENCOUNTER → 2019-10-31 11:35 | Outpatient (CLI) | payer MEDICARE, OTHER, SELFPAY ==
[2018-04-19 18:19] VITALS: BMI 26.4
--- NOTE | 2019-10-31 11:46 | DI.MG.S_ITS ---
Patient Name: KEENAN LOFTON date: 1945 Sex: F Attending Physician: Chilo Indications: Date: 10/31/2019 11:40 At the request of: KEENAN BOLDEN Procedure: MM screening mammo BI BILATERAL DIGITAL SCREENING MAMMOGRAM 3D/2D WITH CAD: 10/31/2019 CLINICAL: Routine screening. Comparison is made to exams dated: 06/22/2018 mammogram, 06/16/2017 mammogram, and 01/20/2016 mammogram - [facility]. There are scattered fibroglandular elements in both breasts. Current study was also evaluated with a Computer Aided Detection (CAD) system. There are benign calcifications in both breasts. No significant masses, calcifications, or other findings are seen in either breast. There has been no significant interval change. IMPRESSION: BENIGN There is no mammographic evidence of malignancy. A 1 year screening mammogram is recommended. This exam was interpreted at Station ID: [id number]. NOTE: For mammograms, a report in lay terms will be sent to the patient. Approximately 15% of breast malignancies will not be visualized mammographically. In the management of a palpable breast mass, a negative mammogram must not discourage biopsy of a clinically suspicious lesion. Electronically Signed By: Ruben loomis/colby:10/31/2019 12:11:40 letter sent: Normal Exam ACR BI-RADS Category 2: Benign Finding(s) 3342F
== END ==
PROVIDERS: PCP Internal Medicine; Referring Provider Internal Medicine; Visit Provider Internal Medicine
DX: Z12.31 Encounter for screening mammogram for malignant neoplasm of breast (principal)
CPT/HCPCS: 77063; 77067

== ENCOUNTER → 2020-05-01 12:29 | Outpatient (CLI) | payer MEDICARE, OTHER, SELFPAY ==
[2018-04-19 18:19] VITALS: BMI 26.4
[2020-05-01 12:51] LABS: Add Manual Diff / Slide Review NO; Basophils Absolute Auto 0 /uL (0-100); Eosinophils Absolute Auto 100 /uL (0-450); Eosinophils Percent Auto 3.5 % (2-4); Hematocrit 43.4 % (36-46); Hemoglobin 14.3 g/dL (12.0-16.0); Lymphocytes Absolute Auto 1400 /uL (1100-4500); Lymphocytes Percent Auto 42.5 % (25-40); Mean Corpuscular HGB Conc 33.1 % (30-36); Mean Corpuscular Hemoglobin 31.4 PG (26-34); Mean Corpuscular Volume 95.1 fL (80-100); Monocytes Absolute Auto 400 /uL (0-900); Monocytes Percent Auto 12.3 % (3-14); Neutrophils Absolute Auto 1300 /uL (1500-7000); Neutrophils Percent Auto 40.7 % (50-75); Platelet Count 181 X10^3/uL (150-400); Red Blood Cell Count 4.56 X10^6/uL (4.0-5.2); Red Cell Distribution Width 17.4 % (11.6-14.8); White Blood Cell Count 3.3 X10^3/uL (4.5-11.0)
[2020-05-01 13:04] LABS: Alanine Aminotransferase 23 IU/L (<35); Albumin 3.8 g/dL (3.5-5.0); Albumin Globulin Ratio 1.4 (1.0-2.8); Alkaline Phosphatase 86 U/L (38-126); Aspartate Aminotransferase 24 IU/L (14-36); BUN Creatinine Ratio 21.2 (6-22); Bilirubin Total 0.5 mg/dL (0.2-1.3); Blood Urea Nitrogen 18 mg/dL (7-17); Calcium 10.6 mg/dL (8.4-10.2); Carbon Dioxide 29 mmol/L (22-32); Chloride 107 mmol/L (98-107); Estimated Glomerular Filt Rate > 60.0 mL/min (>60); Globulin 2.8 g/dL (1.7-4.1); Glucose 93 mg/dL (80-110); HEMOLYSIS < 15 (0-50); Potassium 3.8 mmol/L (3.4-5.1); Sodium 141 mmol/L (137-145); Total Protein 6.6 g/dL (6.3-8.2)
== END ==
PROVIDERS: PCP Internal Medicine; Referring Provider Internal Medicine Hematology & Oncology; Visit Provider Internal Medicine Hematology & Oncology
DX: C91.Z0 Other lymphoid leukemia not having achieved remission (principal)
CPT/HCPCS: 36415; 80053; 85025

== ENCOUNTER → 2020-11-25 18:02 | Outpatient (CLI) | payer MEDICARE, OTHER, SELFPAY ==
[2018-04-19 18:19] VITALS: BMI 26.4
--- OUTSIDE RECORDS SUMMARY | 2020-11-17 07:10 | XMS_ITS | Referral Summary ---
:1945 Author Organization [facility] Address [address] [place] [address] Care Team Providers Name Role Phone Roland Woo Primary Care Provider Reason for Referral Consultation (Routine) - Authorized Specialty Diagnoses / Procedures Referred By Contact Refer red To Contact Oncology Diagnoses T-cell large granular lymphocytic leukemia (CMS/HCC) Scarlett Mendieta MD [address] [address] [address] [place], [place] Phone: [phone] Referral ID Status Reason Start Expiration Visits Visits Date Date Requested Authorized [id number] Authorized Specialty 11/15/2020 11/10/2021 1 1 Services Required Encounter Details Date Type Department Care Team Description 11/15/2020 Orders Only [facility] Wei Mendieta MD T-cell large granular Oncology [address] lymphocytic leukemia [address] [place] [address], [address] (CMS/HCC) (Primary Dx) [address] [place] [phone] Allergies Active Allergy Reactions Severity Noted Date Comments Levofloxacin 07/07/2014 documented as of this encounter (statuses as of 11/16/2020) Medications Medication Sig Dispensed Refills Start Date End Date Status atorvastatin Take 20 mg by 0 08/30/2020 Ac tive (LIPITOR) 20 mg mouth once daily tablet cholecalciferol, 0 Act hellen vitamin D3, 10 mcg (400 unit) tablet cetirizine (ZyrTEC) daily 0 Active 10 mg tablet furosemide (LASIX) 20 Take 60 mg by 0 07/28/2020 Active mg tablet mouth once daily losartan (COZAAR) 100 Take 100 mg by 0 09/13/2020 Active mg tablet mouth nightly methotrexate 2.5 mg Take 20 mg by 0 07/27/2020 Active tablet mouth once a week SUMAtriptan (Imitrex) take 1 Tablet by 0 Active 50 mg tablet oral route once with fluids as early as possible after the onset of a migraine attack;may repeat after 2 hours if headache returns, not to exceed 200mg in 24hrs calcium carbonate take 1 tablet by 0 Active (OS-LOLIS) 500 mg oral route 2 calcium (1,250 mg) times every tablet omeprazole 20 mg take 1 capsule by 0 Active tablet,delayed oral route every release (DR/EC) day before a meal folic 0 Active acid/multivit-min/lut ein (CENTRUM SILVER ORAL) predniSONE Take 1 tablet 30 tablet 11 11/05/2020 11/05/2021 Act hellen (DELTASONE) 2.5 mg (2.5 mg total) by tabletIndications: mouth daily T-cell large granular lymphocytic leukemia (CMS/HCC) predniSONE Take 1 tablet (5 30 tablet 11 11/15/2020 A ctive (DELTASONE) 5 mg mg total) by tablet mouth daily documented as of this encounter (statuses as of 11/16/2020) Active Problems Problem Noted Date T-cell large granular lymphocytic leukemia 10/08/2020 documented as of this encounter (statuses as of 11/16/2020) Social History Tobacco Use Types Packs/Day Years Used Date Never Smoker Smokeless Tobacco: Never Used Alcohol Use Standard Drinks/Week Comments Never 0 (1 standard drink = 0.6 oz pure alcoho l) Alcohol Habits Answer Date Recorded How often do you have a drink containing alcohol? Never 10/08/2020 How many drinks containing alcohol do you have on a typical Not asked day when you are drinking? How often do you have six or more drinks on one occasion? No t asked Sex Assigned at Date Recorded Not on file Job Start Date Occupation Industry Not on file Not on file Not on file documented as of this encounter Progress Notes Kerri Sheriff RN - 11/15/2020 2:19 PM PDT Pt wishes to be referred back to [facility] with Dr Mendieta. Referral placed. Refilled [address] Arce note. documented in this encounter Plan of Treatment Scheduled Referrals Name Type Priority Associated Diagnoses Order S chedule XTRNL Referral to Outpatient Referral Routine T-cell large gra nular Ordered: Oncology lymphocytic leukemia 021 (CMS/HCC) documented as of this encounter Visit Diagnoses Diagnosis T-cell large granular lymphocytic leukem ia (CMS/HCC) - Primary documented in this encounter Insurance Payer Benefit Plan / Subscriber ID Effective Dates Phone Addre ss Type Group MEDICARE MEDICARE PART [id number] 2012-Prese [phone] [address] [place] [address] [employer] [employer] [id number] 2020-Presen [phone] [address] [address] [address] [place] [address] documented as of this encounter Advance Directives Documents on File Type Date Recorded Patient Dietary Director Explanati on Advance Directives and Living Will Care Teams Orthodontist Relationship Specialty Start Date End Date Joy Woo PCP - General Internal Medicine 10/08/[address] [place] [address] [place], [place] [id number] documented as of this encounter
--- NOTE | 2020-11-25 | DI.MG.S_ITS ---
BILATERAL DIGITAL SCREENING MAMMOGRAM 3D/2D WITH CAD: 11/25/2020 CLINICAL: Routine screening. Comparison is made to exams dated: 10/31/2019 mammogram, 06/22/2018 mammogram, and 06/16/2017 mammogram - [facility]. There are scattered fibroglandular elements in both breasts. Current study was also evaluated with a Computer Aided Detection (CAD) system. There are benign calcifications in both breasts. No significant masses, calcifications, or other findings are seen in either breast. There has been no significant interval change. IMPRESSION: BENIGN There is no mammographic evidence of malignancy. A 1 year screening mammogram is recommended. This exam was interpreted at Station ID: [id number]. NOTE: For mammograms, a report in lay terms will be sent to the patient. Approximately 15% of breast malignancies will not be visualized mammographically. In the management of a palpable breast mass, a negative mammogram must not discourage biopsy of a clinically suspicious lesion. Electronically Signed By: Snow sam/colby:11/26/2020 08:58:39 letter sent: Normal Exam ACR BI-RADS Category 2: Benign Finding(s) 3342F
== END ==
PROVIDERS: PCP Internal Medicine; Referring Provider Internal Medicine; Visit Provider Internal Medicine
DX: Z12.31 Encounter for screening mammogram for malignant neoplasm of breast (principal)
CPT/HCPCS: 77063; 77067

== ENCOUNTER → 2021-11-30 15:15 | Outpatient (CLI) | payer MEDICARE, OTHER, SELFPAY ==
[2018-04-19 18:19] VITALS: BMI 26.4
--- NOTE | 2021-11-30 | DI.MG.S_ITS ---
BILATERAL DIGITAL SCREENING MAMMOGRAM 3D/2D WITH CAD: 11/30/2021 CLINICAL: Routine screening. Comparison is made to exams dated: 11/25/2020 mammogram, 10/31/2019 mammogram, and 06/22/2018 mammogram - . There are scattered areas of fibroglandular density in both breasts (category b / 25%-50% glandular tissue). Current study was also evaluated with a Computer Aided Detection (CAD) system. There are benign calcifications in both breasts. No significant masses, calcifications, or other findings are seen in either breast. There has been no significant interval change. IMPRESSION: BENIGN There is no mammographic evidence of malignancy. A 1 year screening mammogram is recommended. Based on the Tyrer Cuzick model (a risk assessment model) the patient's lifetime risk is 8.8% and her 10 year risk is 7.9%. According to the ACR, ACS, and NCCN guidelines, an annual breast MRI exam along with mammogram is recommended if the patient's lifetime risk is 20% or greater. This exam was interpreted at Station ID: [id number]. NOTE: For mammograms, a report in lay terms will be sent to the patient. Approximately 15% of breast malignancies will not be visualized mammographically. In the management of a palpable breast mass, a negative mammogram must not discourage biopsy of a clinically suspicious lesion. Electronically Signed By: Mo green/colby:12/01/2021 09:05:24 letter sent: Normal Exam ACR BI-RADS Category 2: Benign Finding(s) 3342F
== END ==
PROVIDERS: PCP Internal Medicine; Referring Provider Internal Medicine; Visit Provider Internal Medicine
DX: Z12.31 Encounter for screening mammogram for malignant neoplasm of breast (principal)
CPT/HCPCS: 77063; 77067

== ENCOUNTER → 2022-11-17 17:38 | Outpatient (ROUT) | payer MEDICARE, SELFPAY ==
[2018-04-19 18:19] VITALS: BMI 26.4
[2022-11-17 17:52] LABS: Add Manual Diff / Slide Review NO; Basophils Absolute Auto 100 /uL (0-100); Eosinophils Absolute Auto 0 /uL (0-450); Eosinophils Percent Auto 0.8 % (2-4); Hematocrit 40.8 % (36-46); Hemoglobin 13.9 g/dL (12.0-16.0); Lymphocytes Absolute Auto 800 /uL (1100-4500); Lymphocytes Percent Auto 13.1 % (25-40); Mean Corpuscular HGB Conc 34.1 % (30-36); Mean Corpuscular Volume 96.6 fL (80-100); Monocytes Absolute Auto 500 /uL (0-900); Monocytes Percent Auto 9.5 % (3-14); Neutrophils Absolute Auto 4300 /uL (1500-7000); Neutrophils Percent Auto 75.6 % (50-75); Platelet Count 236 X10^3/uL (150-400); Red Blood Cell Count 4.22 X10^6/uL (4.0-5.2); Red Cell Distribution Width 14.4 % (11.6-14.8); White Blood Cell Count 5.7 X10^3/uL (4.5-11.0)
[2022-11-17 18:04] LABS: Alanine Aminotransferase 37 IU/L (<35); Albumin 3.9 g/dL (3.5-5.0); Albumin Globulin Ratio 1.5 (1.0-2.8); Alkaline Phosphatase 94 U/L (38-126); Aspartate Aminotransferase 33 IU/L (14-36); Bilirubin Total 0.5 mg/dL (0.2-1.3); Blood Urea Nitrogen 23 mg/dL (7-17); Calcium 10.5 mg/dL (8.4-10.2); Carbon Dioxide 25 mmol/L (22-32); Chloride 108 mmol/L (98-107); Estimated Glomerular Filt Rate > 60 mL/min (>60); Globulin 2.6 g/dL (1.7-4.1); Glucose 136 mg/dL (80-110); HEMOLYSIS 17 (0-50); Sodium 139 mmol/L (137-145); Total Protein 6.5 g/dL (6.3-8.2)
[2022-11-19 03:38] LABS: Parathyroid Hormone, Intact 71 pg/mL (15-65)
== END ==
PROVIDERS: PCP Internal Medicine; Visit Provider Internal Medicine Hematology & Oncology
DX: C91.Z0 Other lymphoid leukemia not having achieved remission (principal); E83.52 Hypercalcemia
CPT/HCPCS: 36415; 80053; 82310; 83970; 85025

== ENCOUNTER → 2022-12-13 16:06 | Outpatient (CLI) | payer MEDICARE, SELFPAY ==
[2018-04-19 18:19] VITALS: BMI 26.4
--- NOTE | 2022-12-13 16:07 | DI.MG.S_ITS ---
BILATERAL DIGITAL SCREENING MAMMOGRAM 3D/2D WITH CAD: 12/13/2022 CLINICAL: Routine screening. Comparison is made to exams dated: 11/30/2021 mammogram, 11/25/2020 mammogram, and 10/31/2019 mammogram - [facility]. There are scattered areas of fibroglandular density in both breasts (category b / 25%-50% glandular tissue). Current study was also evaluated with a Computer Aided Detection (CAD) system. There is a stable benign focal asymmetry in both breasts. There also are stable benign calcifications in both breasts. No significant masses, calcifications, or other findings are seen in either breast. There has been no significant interval change. IMPRESSION: BENIGN There is no mammographic evidence of malignancy. A 1 year screening mammogram is recommended. Based on the Tyrer Cuzick model (a risk assessment model) the patient's lifetime risk is 8.1% and her 10 year risk is 8.1%. According to the ACR, ACS, and NCCN guidelines, an annual breast MRI exam along with mammogram is recommended if the patient's lifetime risk is 20% or greater. This exam was interpreted at Station ID: [id number]. NOTE: For mammograms, a report in lay terms will be sent to the patient. Approximately 15% of breast malignancies will not be visualized mammographically. In the management of a palpable breast mass, a negative mammogram must not discourage biopsy of a clinically suspicious lesion. Electronically Signed By: Sohan bradley/colby:12/14/2022 10:16:06 letter sent: Normal Exam ACR BI-RADS Category 2: Benign Finding(s) 3342F
== END ==
PROVIDERS: PCP Internal Medicine; Referring Provider Internal Medicine; Visit Provider Internal Medicine
DX: Z12.31 Encounter for screening mammogram for malignant neoplasm of breast (principal)
CPT/HCPCS: 77063; 77067

== ENCOUNTER → 2023-01-10 15:22 | Outpatient (CLI) | payer MEDICARE, SELFPAY ==
[2018-04-19 18:19] VITALS: BMI 26.4
--- NOTE | 2023-01-10 15:24 | DI.RAD.S_ITS ---
PROCEDURE: XR KNEE LT 3V INDICATIONS: left knee pain TECHNIQUE: 3 views of the knee were acquired. COMPARISON: [facility], , XR KNEE LT 1TO2V, 03/20/2018, 10:45. FINDINGS: Bones: Left total knee arthroplasty is redemonstrated. Hardware elements are in unchanged anatomic alignment. Soft tissues: No joint effusion. No suspicious soft tissue calcifications. IMPRESSION: Stable appearances status post left total knee arthroplasty. Dictated by: Luisa Calzada M.D. on 01/10/2023 at 17:27 Approved by: Luisa Calzada M.D. on 01/10/2023 at 17:28
--- NOTE | 2023-01-10 15:24 | DI.RAD.S_ITS ---
PROCEDURE: XR RIBS LT MIN 3V W CXR1V INDICATIONS: left rib pain TECHNIQUE: 2 views of the left ribs were acquired, along with a single view chest. COMPARISON: None. FINDINGS: Surgical changes and devices: None. Bones and chest wall: No fractures or dislocations. No suspicious bony lesions. Overlying soft tissues appear unremarkable. Lungs and pleura: No pleural effusions or pneumothorax. Lungs appear clear. Mediastinum: Mediastinal contours appear normal. Heart size is normal. IMPRESSION: No displaced rib fractures. No acute cardiopulmonary findings. Dictated by: Luisa Calzada M.D. on 01/10/2023 at 17:28 Approved by: Liusa Calzada M.D. on 01/10/2023 at 17:28
== END ==
PROVIDERS: PCP Internal Medicine; Referring Provider Physician Assistant; Visit Provider Physician Assistant
DX: S80.02XA Contusion of left knee, initial encounter (principal); R07.81 Pleurodynia; Z96.652 Presence of left artificial knee joint
CPT/HCPCS: 71101; 73562

== ENCOUNTER → 2023-01-16 16:49 | Outpatient (CLI) | payer MEDICARE, SELFPAY ==
[2018-04-19 18:19] VITALS: BMI 26.4
--- NOTE | 2023-01-16 | DI.RAD.S_ITS ---
PROCEDURE: XR PELVIS 1-2V INDICATIONS: PELVIC PAIN TECHNIQUE: 1 view(s) of the pelvis acquired. COMPARISON: None. FINDINGS: Bones: No fractures or dislocations. No suspicious bony lesions. Mild bilateral joint space narrowing Soft tissues: Visualized bowel gas pattern is normal. No suspicious soft tissue calcifications. IMPRESSION: Mild arthritic degenerative joint space narrowing Approved by: Gilbert Sabillon M.D. on 01/17/2023 at 18:34
== END ==
PROVIDERS: PCP Internal Medicine; Referring Provider Internal Medicine; Visit Provider Internal Medicine
DX: R10.2 Pelvic and perineal pain (principal)
CPT/HCPCS: 72170

== ENCOUNTER → 2023-08-06 16:58 | Outpatient (CLI) | payer MEDICARE, SELFPAY ==
[2018-04-19 18:19] VITALS: BMI 26.4
[2023-08-06 17:48] LABS: Hemoglobin A1C% w Est Avg Glu 5.3 % (4.0-6.0)
[2023-08-06 17:53] LABS: Add Manual Diff / Slide Review NO; Basophils Absolute Auto 0 /uL (0-100); Basophils Percent Auto 0.6 % (0-2); Eosinophils Absolute Auto 0 /uL (0-450); Eosinophils Percent Auto 0.3 % (2-4); Hematocrit 42.2 % (36-46); Hemoglobin 14.3 g/dL (12.0-16.0); Lymphocytes Absolute Auto 600 /uL (1100-4500); Lymphocytes Percent Auto 7.8 % (25-40); Mean Corpuscular HGB Conc 33.8 % (30-36); Mean Corpuscular Hemoglobin 33.9 PG (26-34); Mean Corpuscular Volume 100.1 fL (80-100); Monocytes Absolute Auto 600 /uL (0-900); Monocytes Percent Auto 7.4 % (3-14); Neutrophils Absolute Auto 6400 /uL (1500-7000); Neutrophils Percent Auto 83.9 % (50-75); Platelet Count 221 X10^3/uL (150-400); Red Blood Cell Count 4.22 X10^6/uL (4.0-5.2); Red Cell Distribution Width 14.1 % (11.6-14.8); White Blood Cell Count 7.6 X10^3/uL (4.5-11.0)
[2023-08-06 17:54] LABS: Appearance Urine UA CLEAR; Bilirubin Urine UA NEGATIVE (NEGATIVE); Color Urine UA YELLOW; Glucose Urine UA NEGATIVE (Negative); Ketones Urine UA NEGATIVE (NEGATIVE); Leukocyte Esterase Urine UA NEGATIVE (NEGATIVE); Nitrite Urine UA NEGATIVE (Negative); Occult Blood Urine UA NEGATIVE (Negative); Protein Urine UA NEGATIVE (Negative); Specific Gravity Urine UA 1.015 (1.000-1.035); Urobilinogen Urine UA 0.2 E.U./dL (0.2)
[2023-08-06 17:57] LABS: pH Urine UA 5.5 (4.5-8.0)
[2023-08-06 18:03] LABS: Bacteria Urine Occasional (0-1); Culture Indicated Urine Cult Not Indicated; Hyaline Casts Urine 0-1/LPF; Mucus Urine 1+ (Negative); RBC Urine 1-5/HPF (0-5/HPF); Squamous Epithelial Cell Urine 5-10 /HPF (0-5/HPF); Urine Volume 10mL (spun); WBC Urine 1-5/HPF (0-5/HPF)
[2023-08-06 18:16] LABS: Erythrocyte Sedimentation Rate 8 MM/HR (0-20)
[2023-08-06 18:18] LABS: BUN Creatinine Ratio 18.3 (6-22); Blood Urea Nitrogen 17 mg/dL (7-17); C-Reactive Protein Quant < 0.5 mg/dL (<1.0); Calcium 9.7 mg/dL (8.4-10.2); Carbon Dioxide 28 mmol/L (22-32); Chloride 108 mmol/L (98-107); Estimated Glomerular Filt Rate > 60 mL/min (>60); Glucose 103 mg/dL (80-110); HEMOLYSIS < 15 (0-50); Potassium 4.1 mmol/L (3.4-5.1); Sodium 139 mmol/L (137-145)
== END ==
PROVIDERS: PCP Internal Medicine; Referring Provider Orthopaedic Surgery; Visit Provider Orthopaedic Surgery
DX: Z01.818 Encounter for other preprocedural examination (principal); R73.9 Hyperglycemia, unspecified; Z01.812 Encounter for preprocedural laboratory examination; N39.0 Urinary tract infection, site not specified; R79.82 Elevated C-reactive protein (CRP)
CPT/HCPCS: 36415; 80048; 81001; 83036; 85025; 85651; 86140; 93005

== ENCOUNTER 2023-09-04 12:00 | Day surgery (SDC) | payer MEDICARE, SELFPAY ==
[2018-04-19 18:19] VITALS: BMI 26.4
[2023-08-29 09:21] VITALS: BMI 28.4
[2023-09-04] VITALS (15 sets, daily range): BP systolic 128–171; BP diastolic 59–94; PULSE 64–77; RESP 12–23; TEMP 36.1–36.7; O2SAT 93–97; BMI 28.4
--- NOTE | 2023-09-04 06:48 | DI.RAD.S_ITS ---
PROCEDURE: XR KNEE RT 1TO2V INDICATIONS: TKA TECHNIQUE: 2 view(s) of the knee acquired. COMPARISON: [facility], CR, XR KNEE LT 3V, 01/10/2023, 15:25. FINDINGS: Bones: Patient is status post knee joint arthroplasty. Hardware components are in expected positions. Visualized bony structures are intact. Soft tissues: Overlying postoperative changes are noted. IMPRESSION: Expected post-operative appearance of a knee arthroplasty. Dictated by: Sintia Araujo M.D. on 09/04/2023 at 19:31 Approved by: Sintia Araujo M.D. on 09/04/2023 at 19:31
[2023-09-04] MEDS: LACTATED RINGERS 1,000 ML 42 ML IV ×2 (12:28→15:50)
[2023-09-04] MEDS: ACETAMINOPHEN 325 MG TABLET 975 MG PO (12:28)
[2023-09-04] MEDS: VANCOMYCIN 1,000 MG/200 ML PIGGYBACK 200 MG IV (12:31)
--- NOTE | 2023-09-04 14:43 | SUR.PREOP ---
Block start time 1428 with a time out . Monitoring initiated and maintained throughout procedure. Oxygen and medications given per anesthesiologist instructions. Patient remained stable throughout procedure, no adverse reactions noted. Block end time 1437.
--- NOTE | 2023-09-04 14:47 | PM.PREOP ---
Pre-operative Note Interval Note History & Physical reviewed/Exam performed by Physician: Yes Changes to H&P: No
--- NOTE | 2023-09-04 14:48 | PM.OP.1 ---
Operative Date/Time/Diagnoses Date of procedure: 09/04/23 Time of procedure: 14:51 Pre-op diagnosis: Severe right knee OA Post-op diagnosis: same Procedure & Clinicians Procedure: Right total knee arthroplasty Same procedure as scheduled: Yes Indications: The patient has had progressively worsening right knee pain with radiographic changes consistent with arthritis. Non-operative management has failed and the patient has requested total knee replacement. The risks, benefits and alternatives to surgery were discussed with the patient prior to proceeding. Risks discussed included, but were not limited to, failure to relieve pain, stiffness, infection, nerve damage, deep venous thrombosis, pulmonary embolism, stroke, coma, heart attack, permanent paralysis and , as well as the potential need for eventual revision of the prosthetic. Surgeon: Amanda Waite Mechanic Recovery: Nicholas Waters Anesthesia Type: General and Peripheral nerve block Operative Notes Findings: Severe right knee osteoarthritis, acceptable stability, good range of motion Closure Type: primary Specimen(s): none sent Prosthetic devices, grafts, tissues, transplants, or devices: Waite and nephew sherlyn BCS 2 size 4 femur, size 3 tibia, +9 poly, 7 x 5 x 32 mm patella Estimated Blood Loss (mL): 250 Blood products transfused: none Tourniquet time (min): 70 Procedure in detail: The patient was seen in the pre-operative area, where the patient identified the right knee as the operative site and this was marked with my initials. The patient received pre-operative antibiotics, and was taken to the operating room and placed on the operative table in the supine position. After satisfactory anesthesia, a registered phlebotomist part time out was performed. The right leg was encircled with a tourniquet about the proximal thigh, and the leg was prepared from the toes to the tourniquet with ChloroPrep in the usual fashion and draped through sterile drapes. The leg was elevated and exsanguinated with Eschmark bandage and the tourniquet inflated to [250] mmHg pressure. A PA was used during the procedure and was essential for intraoperative retraction and safe implantation of the components. The knee was approached through an approximately 18 cm incision centered over the patella and carried into the knee through a medial parapatellar arthrotomy. Portion of the medial and lateral meniscus was resected. Soft tissue was carefully mobilized around the patella the patella was measured with a caliper. Bone was resected from the patella and the patellar height was reconstituted with up an appropriate sized patellar component. A cover was then placed on the patella. A small amount of additional medial and lateral meniscus was resected. Lucas pins were placed in femur tibial guide was attached. The femur and tibia were meticulously mapped and the patient was pacer range of motion for stressed and unstressed range of motion. A plan was taken meticulously developed. Looked like an appropriate plan excellent range of motion and good stability. The Cori robotic bur was used with the distal femoral cut. It looked like an appropriate distal femoral cut and the cut was made without difficulty. The rotation was assessed and the appropriate size femoral guide was placed on the distal femur and finishing cuts were made. There was no evidence of notching. The anterior, posterior and chamfer cuts were then made. The posterior osteophytes and soft tissues were then removed. The posterior capsule was injected with part of a mixture of 60 ml 0.25% Marcaine mixed with 20 ml Exparel for post operative pain control. The remainder of this mixture was injected into the capsule and subcutaneous tissues during cement curing. The tibia guide was placed and meticulously navigated. The tibial cut appeared appropriate.. The patient was placed in extension residual medial and lateral meniscus as well as any residual bone was carefully resected. [No] additional tibia was resected. Hemostasis was achieved especially posteriorly. Additional local was injected into the posterior capsule. The femoral component was trial was placed and the notch was finished. Trial tibial and femoral components were then placed and the knee placed through a range of motion. Range of motion was [0-130], with good stability throughout the range. The trials were then removed, and the tibia was finished. The bone was prepared with pulsatile lavage, and dried with a sponge. Cement was applied and the final prosthetics placed. Excess cement was removed during and after cement curing. A brief Betadine soak was performed. After confirming there was no extruded cement posteriorly, the final tibial insert was placed. The knee was copiously irrigated and the tourniquet deflated. Hemostasis was obtained with the Bovie cautery. The capsule was closed with interrupted # 1 Vicryl suture. The subcutaneous layer was closed with barbed sutures, and the skin with a running 3-0 V-Lock suture and Surgical glue. An Aquacel Ag dressing was applied and the patient was taken to recovery having tolerated the procedure well. Complications: none Post-operative Condition: stable Disposition: same day surgery Plan for aftercare: The patient will be maintained on a standard total knee replacement protocol with weight bearing as tolerated. The patient will receive aspirin and sequential compression devices for DVT prophylaxis. The patient will be discharged home when safe for the home environment. She has a history of a previous periprosthetic infection on the other side. She has a history of leukemia. She saw ID and she recommended postoperative antibiotics until the wound is completely healed doxycycline 100 mg p.o. b.i.d. for 14 days. She will be admitted for 1 day of IV antibiotics and then can likely be transitioned to an oral antibiotic.
[2023-09-04] MEDS: CEFAZOLIN 2 GM/100 ML PREMIX 100 ML IV ×2 (15:04→23:27)
[2023-09-04] MEDS: TRANEXAMIC ACID 1,000 MG VIAL 1000 MG INJ ×2 (15:05→16:49)
--- NOTE | 2023-09-04 15:33 | SUR.OPER ---
Supine on padded OR bed. Pillow under head, arms secured on padded armboards <90 degree abduction. Safety belt across torso. Non-operative leg secured with tape over blanket over lower leg. Operative leg secured in DeMayo positioner. Foam padded brace at thigh of operative leg.
[2023-09-04] MEDS: BUPIVACAINE 0.25% (PF) 60 ML, EPINEPHrine 0.3 MG INJ (15:40)
[2023-09-04] MEDS: BUPIVACAINE LIPOSOME 266 MG/20 ML VIAL INJ (15:41)
[2023-09-04] MEDS: OXYCODONE IR 5 MG TABLET PO (17:18)
[2023-09-04] MEDS: LACTATED RINGERS 1,000 ML 100 ML IV ×2 (18:00→23:31)
--- NOTE | 2023-09-04 19:40 | PC.NURSE ---
Patient brought up from PACU to room 219, settled by coordinator Kaley LAMBERT. Oriented to room and call light. VSS. Denies pain. Wiggling toes and ankles. DILIA dressing to right knee is intact, with chelsea bandage in place. Call light within reach. Tolerated dinner tray, denies n/v. Monitor patient for void post surgery.
[2023-09-04] MEDS: ATORVASTATIN 20 MG TABLET PO (21:52)
[2023-09-04] MEDS: ASPIRIN EC 81 MG TABLET PO (21:52)
[2023-09-04] MEDS: METOPROLOL ER 50 MG TABLET PO (21:52)
[2023-09-04] MEDS: MELATONIN 3 MG TABLET 9 MG PO (21:52)
[2023-09-04] MEDS: DOCUSATE 100 MG CAPSULE PO (21:52)
[2023-09-04] MEDS: LOSARTAN 50 MG TABLET 100 MG PO (21:55)
[2023-09-04] MEDS: ACETAMINOPHEN 325 MG TABLET 650 MG PO (23:30)
[2023-09-05 05:06] LABS: Hemoglobin 13.2 g/dL (12.0-16.0)
[2023-09-05 06:00] VITALS: BP 128/58; PULSE 73; RESP 16; TEMP 36; O2SAT 93
[2023-09-05] MEDS: CEFAZOLIN 2 GM/100 ML PREMIX 100 ML IV (06:01)
[2023-09-05] MEDS: PANTOPRAZOLE DR 20 MG TABLET PO (06:01)
--- NOTE | 2023-09-05 08:37 | PM.PNPO.1 ---
Subjective Subjective Date Patient Seen: 09/05/23 Time Patient Seen: 08:38 Interval history: Knee pain is [id number]. No fever or chills. No nausea or vomiting. Patient does have assistance at home. Patient states she has not yet worked with physical therapy. Exam Vital Signs (past 8 hours): - 09/05/23 06:00 Temperature 96.8 F L Pulse Rate 73 Respiratory Rate 16 Blood Pressure 128/58 L Pulse Oximetry 93 Oxygen Flow Rate 0 Oxygen Delivery Method Room Air Oxygen Flow Rate 0 Narrative Exam Narrative: Pleasant 78-year-old female resting comfortably in bed in no apparent distress. Tk dressing is on and functioning. Dressing is clean, dry and intact. Neurovascular status intact bilateral lower extremities. Const General: cooperative and comfortable Nutritional Appearance: average body habitus Orientation: alert Resp Effort & Inspection: normal respiratory effort and able to speak in complete sentences Objective Labs 09/05/23 04:30 Labs: Laboratory Results - last 24 hr 09/05/23 04:30 Hgb 13.2 Hct 40.0 PFSH Medical History Lower back pain Urethra disorder (~1969) Diverticulitis (~09/2017) GERD (gastroesophageal reflux disease) Edema extremities Hyperlipidemia HTN (hypertension) Walking pneumonia Macular pucker, right eye (~2013) Surgical History History of total left knee replacement (03/20/18) History of tonsillectomy and adenoidectomy H/O: hysterectomy History of right cataract extraction (~2013) History of left cataract extraction (~2016) Social History household members: significant other Smoking Status: Never smoker alcohol intake: never Assessment & Plan Post-op Postoperative Procedures: Procedures Operation Date: 09/04/23 13:45 Actual Procedure Side Surgeon p Total Knee Arthroplasty - Robot Right Amanda Waite MD Postoperative day: 1 Postoperative status: doing well Postoperative plan: routine post-op care Postoperative plan narrative: Patient will be maintained on standard total knee replacement protocol with weight-bearing as tolerated Aspirin 81 mg b.i.d. for DVT prophylaxis Doxycycline 100 mg p.o. b.i.d. for 14 days at discharge She is to receive 1 day of IV antibiotics while inpatient prior to discharge due to history of periprosthetic infection of the left knee. Patient has a history of leukemia. Disposition likely later today or tomorrow. Quality VTE Deep Vein Thrombosis/Pulmonary Embolism Present on Admission: No
[2023-09-05] MEDS: CHOLECALCIFEROL (VITAMIN D3) 1,000 UNIT TABLET 1000 UNIT PO (08:56)
[2023-09-05] MEDS: DOCUSATE 100 MG CAPSULE PO (08:56)
[2023-09-05] MEDS: predniSONE 5 MG TABLET 7.5 MG PO (08:56)
[2023-09-05] MEDS: ASCORBIC ACID 500 MG TABLET PO (08:57)
[2023-09-05] MEDS: MULTIVITAMIN 1 TABLET 1 TAB PO (08:57)
[2023-09-05] MEDS: ACETAMINOPHEN 325 MG TABLET 650 MG PO (08:57)
[2023-09-05] MEDS: LORATADINE 10 MG TABLET PO (08:57)
[2023-09-05] MEDS: ASPIRIN EC 81 MG TABLET PO (08:57)
[2023-09-05] MEDS: FUROSEMIDE 20 MG TABLET PO (08:57)
[2023-09-05 09:52] VITALS: BP 152/64; PULSE 69; RESP 16; TEMP 36.6; O2SAT 96
--- NOTE | 2023-09-05 10:55 | PT.IIE ---
Current Diagnoses Unilateral primary osteoarthritis, right knee (09/04/23) Surgery Performed Operation Date: 09/04/23 13:45 Actual Procedures p Total Knee Arthroplasty - Robot(Right) - Amanda Waite MD Surgical History (Last Reviewed 09/05/23 @ 08:38 by Nicholas Waters PA-C) H/O: hysterectomy History of left cataract extraction (~2016) History of right cataract extraction (~2013) History of tonsillectomy and adenoidectomy History of total left knee replacement (03/20/18) Medical History (Last Reviewed 09/05/23 @ 08:38 by Nicholas Waters PA-C) Diverticulitis (~09/2017) Edema extremities GERD (gastroesophageal reflux disease) HTN (hypertension) Hyperlipidemia Lower back pain Macular pucker, right eye (~2013) Urethra disorder (~1969) Walking pneumonia Physical Therapy Inpatient Evaluation/Re-Eval M1 PT/OT-IP Prior Functional Status Start: 09/05/23 13:09 Freq: NEEDED Status: Active Protocol: Document 09/05/23 10:55 AB (Rec: 09/05/23 13:22 AB [id number]) Medical Review Prior Functional Status Medical History Reviewed Yes Communication able to make needs known; with slight confusion Mobility and Gait pt stated that she was independent with all mobilities and ambulation without AD Social History Household Members significant other Living Arrangements House Number of Floors (Floors) 3 or More Floors Number of Stairs To Enter/Railing? pt will stay on main level of the house 3 steps bilateral wide rails and can only use one rail at a time: pt stated that she has used her SPC for stair before Home Environment High Toilet,Walk in Shower Home Equipment Front Wheel Walker,Straight Cane,Raised Toilet Seat w/ Armrests,Shower Seat with Backrest,Hand Held Shower M2 PT-IP Current Condition Start: 09/05/23 13:09 Freq: NEEDED Status: Active Protocol: Document 09/05/23 10:55 AB (Rec: 09/05/23 13:22 AB [id number]) Physical Therapy Current Condition Current Condition Evaluation Date 09/05/23 Treatment Diagnosis s/p R TKA; difficulty in walking Onset Date 09/04/23 M3 PT-IP Subjective Start: 09/05/23 13:09 Freq: NEEDED Status: Active Protocol: Document 09/05/23 10:55 AB (Rec: 09/05/23 13:22 AB [id number]) Subjective Physical Therapy Visit Type Type Initial Evaluation Visit Start Time 10:55 Visit Stop Time 11:50 Number of VEGETABLE II 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 Visits 0 Physical Therapy Visit Comments Patient Comments agreeable to do PT Therapy Pain Assessment Pain When Pain Assessed At Rest Pain Present Pain Present Pain Reported Location right knee Intensity 3 Scale Used Numeric (0 - 10) Pain Management Techniques Distraction,Modification of Treatment,Re-positioning, Timing of Activity with Medications M4 PT-IP Mobility and Gait Start: 09/05/23 13:09 Freq: NEEDED Status: Active Protocol: Document 09/05/23 10:55 AB (Rec: 09/05/23 13:22 AB [id number]) PT-Bed Mobility Assessment Supine to Sit Supine to Sit Moderate Assistance PT-Transfer Assessment Sit to and From Stand Sit to and from Stand Moderate Assistance,Maximum Assistance,1 Person Assistance ,Use of Upper Extremities Equipment Transfer Assistive Device Gait Belt,Front Wheeled Walker Orthotic/Prosthetic Devices or Brace: No Transfers Transfer Destination Chair Transfer Technique Stand Step Pivot Transfer Ability Level of Assist Moderate Assistance,Maximum Assistance,1 Person Assistance ,Use of Upper Extremities Comments Mobility Comments pt supine in bed and agreeable to do PT. obtained PLOF and home set up from pt. post-op folder provided and reviewed contents. educated pt on HEP. pt completed supine to sit mod A and max cues. required assist to move RLE and to EOB. pt was able to sit on EOB CGA . pt completed sit to stand max A and max cues and step transfer to chair using FWW max A and max cues. pt with c /o increase R knee pain. pt agreed to do ambulation. completed sit to stand mod to max A and max cues. completed ambulation using FWW mod to max A and max cues ~ 3 ft. pt with c/o increase R knee pain and requested to sit down. positioned chair behind pt. pt requiring max A for controlled descent to chair. educated pt for techniques to sitting. completed sit <> stand mod to max A and max cues. pt agreed to stay up on the chair. positioned on the chair. call light and table placed within reach. caregiver training set up at 130pm this afternoon. pt stated that she will call her SO Gait Assessment Gait Gait Assistance Required: Moderate Assistance,Maximum Assistance Distance (Feet) 3 Able to Maintain Weight Bearing Status Yes During Gait Assistive Devices Assistive Device Gait Belt,Front Wheeled Walker Orthotic/Prosthetic Devices or Brace: No Gait Deviations General Gait Pattern Antalgic,Decreased Stride Length,Decreased Feet Clearance,Step-to Gait Factors Limiting Gait Function Factors Limiting Gait Function Decreased Activity Tolerance, Decreased Strength,Difficulty Following Directions,Limited Range of Motion,Pain,Poor Balance,Poor Safety Awareness PT-Balance Assessment Sitting Balance and Reactions Static Sitting Balance Ability Good Dynamic Sitting Balance Ability Good Standing Balance and Reactions Static Standing Balance Ability Fair Dynamic Standing Balance Ability Poor Device Used FWW M5 PT-IP Objective Assessments Start: 09/05/23 13:09 Freq: NEEDED Status: Active Protocol: Document 09/05/23 10:55 AB (Rec: 09/05/23 13:22 AB [id number]) Orientation Orientation/Cognition Level of Alertness Alert Orientation Name,Place,Situation Language Function Ability No Deficits Noted Safety Awareness Decreased Safety Awareness Memory Description Short Term Impaired Comments with slight confusion Gross Range of Motion Lower Extremity ROM Impairments R knee flexion: ~ 50 deg R knee extension: ~ 20 deg less to 0 Strength Lower Extremity Strength Assessment Right Impaired Hip 3+/5 Knee 3-/5 Coordination Assessment Gross Coordination Gross Coordination WNL Muscle Tone Muscle Tone WNL Yes M6 PT-IP Treatment Start: 09/05/23 13:09 Freq: NEEDED Status: Active Protocol: Document 09/05/23 10:55 AB (Rec: 09/05/23 13:22 AB [id number]) Physical Therapy Treatment Exercises Exercises Heel Slides Education Education Provided Precautions,Weight Bearing Status,Post-Op Packet,Safety M7 PT-IP Assessment and Plan Start: 09/05/23 13:09 Freq: NEEDED Status: Active Protocol: Document 09/05/23 10:55 AB (Rec: 09/05/23 13:22 AB [id number]) PT Summary Assessment and Plan Potential Rehabilitation Potential Fair Status of Condition at Evaluation Evolving Summary Impairments Pain,ROM,Strength,Balance, Coordination,Sensation,Tone, Cognition,Bed Mobility, Transfers,Gait,Activity Tolerance Assessment Summary pt is a 78 y/o F s/p R TKA POD 1. pt is WBAT on RLE. pt requiring mod to max A with mobility using FWW and was not able to ambulate or tolerate much activity due to c/o increas R knee pain. Caregiver training set up for this afternoon at ~ 130 pm. will continue to assess progress. Goals Bed Mobility Goal Standby Assistance Transfer Goal Standby Assistance,Front Wheeled Walker Gait Goal Standby Assistance,Front Wheel Walker Gait Distance 200 Other Goals up/down 3 steps 1 rail + SPC SBA Days to Meet Goals 5 Frequency of Treatment Frequency Of Treatment Twice a Day Treatment Plan Physical Therapy Treatment Plan Bed Mobility Training,Transfer Training,Gait Training, Therapeutic Exercise,Balance Retraining,Post Op Education, Discharge Planning,Hot or Cold Pack,Neuromuscular Re-ed, Coordination Retraining,Manual Therapy Weight Bearing Status Weight Bearing Status Weight Bear as Tolerated Allowed Weight Bearing Amount (enter % RLE WBAT or #) (%) Recommendations To Nursing Amount of Assist Needed 1 Person Assist Discharge Recommendations PT Discharge Recommendations Home with 25/09 Assist Available,Home Health,SNF Rehab,Home vs SNF Transportation Needs at Discharge Private Vehicle,Wheelchair/ Cabulance
[2023-09-05] MEDS: OXYCODONE IR 5 MG TABLET PO ×2 (11:37→18:08)
--- NOTE | 2023-09-05 13:21 | CM.DANOTE ---
Addendum entered by GONZÁLEZ Conroy 09/05/23 16:13: Per afternoon PT note/OT eval, rec home with 25/09 assistance. Pt has supportive that was able to meet her needs/assist her with safety. Anticipate dc today home with spouse. Per chart review, no barriers to safe dc home identified at this time. JUAN Original Note: Brief DCP Assessment note Pt is a 78yo F here POD1 of right knee surgery with Dr. Waite on 09/04/23. 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 Per chart, pt had his left knee done in Apr, developed an infection and needed to dc on abx. Per chart review, no current signs of infection. Per ortho PA, anticipate dc later today or tomorrow. PT/OT pending. CG training planned for 1330 this afternoon with PT. per chart review, pt lives in [place] with partner Juan. P: anticipate dc home with partner support. CM team will follow for PT/OT evals. No identified barriers to safe dc home at this time. GONZÁLEZ Conroy Discharge Planning/Care Management CM Discharge Assessment Start: 09/05/23 13:19 Freq: Status: Active Protocol: Document 09/05/23 13:20 SL (Rec: 09/05/23 13:21 [id number]) Discharge Planning Assessment Assigned Municipal Services Manager GONZÁLEZ Parr DPOA/Assigned Designee Name Juan, partner Contact Information [phone] Advance Directives? Yes: Working on Advance Directives on File No History Provided By Patient Prior Living Arrangements House Household Members significant other Independent with ADL's Yes Is patient alert and oriented? Yes Discharge Plan Home Transportation Arrangement SO Referrals Initiated None needed Whiteboard Updated in Patient Room with No name and ext. # of Municipal Services Manager Review Status In Process Please Provide Date Initial DC 09/05/23 Assessment Was Performed Next Review Type Continued Stay Review Pre-Anesthesia Assessment Start: 08/29/23 09:20 Freq: Status: Complete Protocol: Document 08/29/23 09:21 CAB (Rec: 08/29/23 10:33 CAB [id number]) Pre-Anesthesia Assessment Patient Information Reviewed Via Phone Assessment Assessment Completed With Patient Diagnostic Results BMP/CMP,CBC,EKG Primary Care Provider Joy Woo Seen Specialist in Last 12 Months Yes Specialist Seen Orthopedist,Other Comment Hematology Primary Language Hungarian Preferred Language Hungarian Occupational Psychologist Required No Height 173.99 cm Weight 86.183 kg Body Mass Index (BMI) 28.4 Hearing Ability Normal Visual Assist Glasses Dentition Type Teeth, Natural Present Barriers to Learning None Other Aids No Hx Anesthesia Reactions No Hx Family Anesthesia Reaction No Hx Malignant Hyperthermia No Hx Blood Transfusions No Hx Blood Transfusion Reaction No Anesthesia Review Requested Yes: PAC courtesy re: Abnormal pre-op EKG Wastewater Analyst Lab Analyst No alcohol intake never Smoking Status Never smoker Substance Use Type does not use Pain Present Pain Reported Musculoskeletal Symptoms Abnormal Gait,Back Pain, Difficulty Walking,Joint Pain, Muscle Weakness History of Falling (Recent or History of No ) Patient is completely paralyzed or No completely immobile Mental Status Oriented to own ability Is patient on oxygen? No Does patient have WAGNER/SOB No Hx Sleep Apnea No CPAP/BIPAP use not prescribed Suspected Sleep Apnea No Currently Taking a Beta Murali Yes: Metoprolol+ Can You Climb a Flight of Stairs Without Yes SOB Hx Chest Pain No Hx SOB No Hx Syncope or Dizziness No Anti-Coagulant Therapy No Has a Cadd Manager No Cardiac Testing No Hx Pacemaker/ICD No Pacemaker Rep Required? No Cardiac Clearance Received No Diet Type At Home Regular Dysphagia No Gastrointestinal Symptoms Reflux Urinary Catheter Present No Hx Urinary Self Catheterization No Diabetes No HgbA1C 5.3 Date 08/06/23 Patient No Lactating No Hx Drug Resistant Organism No Presence of External or Internal Medical Yes: left knee prosthesis Devices Marital Status / Lives With significant other Current Living Arrangements House Number of Floors (Floors) Two Floors Number of Stairs To Enter/Railing? 3 steps, railing present Support System Friend(s),Significant Other Does the Patient Have Assistance After Yes Surgery Patient Discharge Plan Description Return Home Comment Pt not advised on length of stay per surgeon Feels Safe in Current Environment Yes Been Physically Hurt or Threatened By a No Person in Current Environment Do you have thoughts of harming yourself None or others? Are you currently considering suicide? No Do you have a plan to hurt yourself or No Plan others? Do You Have Any Spiritual Beliefs That No May Affect Your HC Choices? Do You Have Any Cultural Practices That No May Affect Your HC Choices? Who Can We Speak to About Patient's Care No information to anyone per pt request, refer to Robi/S. O. Identifying Code for Release of Patient Massiel Claudio Health Care Proxy/Next of Kin oRbi Marie (Angelo.Chris) Health Care Proxy Emergency Contact Name Robi Marie (Hayden) Emergency Contact Advance Directives? Yes: Working on Advance Directives on File No Requested Patient Bring Advanced Yes Directives DOS Power of Morgue Librarian No PAC Instructions Do not shave/clip surgical site,Durable medical equipment ,Medications to take/avoid, Nasal antibiotic,No ETOH/ petroleum product on skin DOS, NPO,Post-op transportation,Pre -surgical wash,Sensory aids, Sturdy shoes/comfortable clothes,Do not bring valuables and remove jewelry
--- NOTE | 2023-09-05 13:35 | PT.IPTN ---
Current Diagnoses Unilateral primary osteoarthritis, right knee (09/04/23) Surgery Performed Operation Date: 09/04/23 13:45 Actual Procedures p Total Knee Arthroplasty - Robot(Right) - Amanda Waite MD Physical Therapy Treatment Note M2 PT-IP Current Condition Start: 09/05/23 13:09 Freq: NEEDED Status: Active Protocol: Document 09/05/23 10:55 AB (Rec: 09/05/23 13:22 AB [id number]) Physical Therapy Current Condition Current Condition Evaluation Date 09/05/23 Treatment Diagnosis s/p R TKA; difficulty in walking Onset Date 09/04/23 M3 PT-IP Subjective Start: 09/05/23 13:09 Freq: NEEDED Status: Active Protocol: Document 09/05/23 14:22 TS (Rec: 09/05/23 14:44 TS [id number]) Subjective Physical Therapy Visit Type Type Treatment Note Visit Start Time 13:35 Visit Stop Time 14:13 Number of OIL HOUSE ATTENDANT Visits 1 Physical Therapy Visit Comments Patient Comments Pt found resting in chair, SO in room, pt is agreeable to PT . Therapy Pain Assessment Pain When Pain Assessed At Rest Pain Present Pain Present Pain Reported M4 PT-IP Mobility and Gait Start: 09/05/23 13:09 Freq: NEEDED Status: Active Protocol: Document 09/05/23 14:22 TS (Rec: 09/05/23 14:44 TS [id number]) PT-Bed Mobility Assessment Supine to Sit Supine to Sit Standby Assistance Sit to Supine Sit to Supine Minimal Assistance Scooting Scooting to Edge of Bed Standby Assistance PT-Transfer Assessment Sit to and From Stand Sit to and from Stand Standby Assistance,Contact Guard Assistance Equipment Transfer Assistive Device Gait Belt,Front Wheeled Walker Orthotic/Prosthetic Devices or Brace: No Transfers Transfer Destination Bed,Chair Transfer Technique Stand Step Pivot Transfer Ability Level of Assist Standby Assistance Comments Mobility Comments SO instructed in and performed donning of gait belt. STS from chair CGA. Pt ambulated in room ~20'SBA/CGA with FWW and slwo step to gait, she is heavy handed on FWW. She performed steps x3 with CGA from SO and counter and SPC support. She performed Sit to supine Uma for RLE and supine to sit SBA. Stand pivot transfer to chair SBA with cues for slow eccentric control. Pt was left in chair, all needs met. Gait Assessment Gait Gait Assistance Required: Standby Assistance,Contact Guard Assist Distance (Feet) 20 Able to Maintain Weight Bearing Status Yes During Gait Assistive Devices Assistive Device Gait Belt,Front Wheeled Walker Orthotic/Prosthetic Devices or Brace: No Gait Deviations General Gait Pattern Antalgic,Decreased Stride Length,Decreased Feet Clearance,Step-to Gait Factors Limiting Gait Function Factors Limiting Gait Function Decreased Activity Tolerance, Decreased Strength,Limited Range of Motion,Pain,Poor Balance Comments Gait Comments Heavy handed on FWW with a slow step to gait. Has no buckling or LOB. Stair Climbing Assessment Evaluation Level of Assist On Stairs Contact Guard Assistance Devices Stair Climbing Assistive Devices Left Railing,Right Railing Technique/Endurance Stair Climbing Direction Ascend and Descend Stair Climbing Technique Step to Step Number of Steps Climbed 3 PT-Balance Assessment Sitting Balance and Reactions Static Sitting Balance Ability Good Dynamic Sitting Balance Ability Good Standing Balance and Reactions Static Standing Balance Ability Fair Dynamic Standing Balance Ability Fair Device Used FWW M5 PT-IP Objective Assessments Start: 09/05/23 13:09 Freq: NEEDED Status: Active Protocol: Document 09/05/23 10:55 AB (Rec: 09/05/23 13:22 AB [id number]) Orientation Orientation/Cognition Level of Alertness Alert Orientation Name,Place,Situation Language Function Ability No Deficits Noted Safety Awareness Decreased Safety Awareness Memory Description Short Term Impaired Comments with slight confusion Gross Range of Motion Lower Extremity ROM Impairments R knee flexion: ~ 50 deg R knee extension: ~ 20 deg less to 0 Strength Lower Extremity Strength Assessment Right Impaired Hip 3+/5 Knee 3-/5 Coordination Assessment Gross Coordination Gross Coordination WNL Muscle Tone Muscle Tone WNL Yes M6 PT-IP Treatment Start: 09/05/23 13:09 Freq: NEEDED Status: Active Protocol: Document 09/05/23 14:22 TS (Rec: 09/05/23 14:44 TS [id number]) Physical Therapy Treatment Education Education Provided Precautions,Weight Bearing Status,Post-Op Packet,Safety M7 PT-IP Assessment and Plan Start: 09/05/23 13:09 Freq: NEEDED Status: Active Protocol: Document 09/05/23 14:22 TS (Rec: 09/05/23 14:44 TS [id number]) PT Summary Assessment and Plan Potential Rehabilitation Potential Fair Summary Impairments Pain,ROM,Strength,Balance, Coordination,Sensation,Tone, Cognition,Bed Mobility, Transfers,Gait,Activity Tolerance Progress Towards Goals Progressing Toward Goals Assessment Summary Joy is making progress with her mobility this session. She performed STS CGA/SBA with FWW. She progressed her gait to ~20'CGA. She performed steps x3 CGA with rail and SPC . She demonstrates good awareness of safety with mobility. SO was instructed in and performed donning of gait belt, STS, gait, stairs and bed mobility. Goals Bed Mobility Goal Standby Assistance Transfer Goal Standby Assistance,Front Wheeled Walker Gait Goal Standby Assistance,Front Wheel Walker Gait Distance 200 Other Goals up/down 3 steps 1 rail + SPC SBA Days to Meet Goals 5 Frequency of Treatment Frequency Of Treatment Twice a Day Treatment Plan Physical Therapy Treatment Plan Bed Mobility Training,Transfer Training,Gait Training, Therapeutic Exercise,Balance Retraining,Post Op Education, Discharge Planning,Hot or Cold Pack,Neuromuscular Re-ed, Coordination Retraining,Manual Therapy Weight Bearing Status Weight Bearing Status Weight Bear as Tolerated Allowed Weight Bearing Amount (enter % RLE WBAT or #) (%) Recommendations To Nursing Amount of Assist Needed 1 Person Assist Discharge Recommendations PT Discharge Recommendations Home with 25/09 Assist Available,Outpatient PT Transportation Needs at Discharge Private Vehicle
--- NOTE | 2023-09-05 15:23 | OT.IP.EVAL ---
Current Diagnoses Unilateral primary osteoarthritis, right knee (09/04/23) Surgery Performed Operation Date: 09/04/23 13:45 Actual Procedures p Total Knee Arthroplasty - Robot(Right) - Amanda Waite MD Past Medical History (Last Reviewed 09/05/23 @ 08:38 by Nicholas Waters PA-C) Diverticulitis (~09/2017) Edema extremities GERD (gastroesophageal reflux disease) HTN (hypertension) Hyperlipidemia Lower back pain Macular pucker, right eye (~2013) Urethra disorder (~1969) Walking pneumonia Surgical History (Last Reviewed 09/05/23 @ 08:38 by Nicholas Waters PA-C) H/O: hysterectomy History of left cataract extraction (~2016) History of right cataract extraction (~2013) History of tonsillectomy and adenoidectomy 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 Social History Household Members significant other Living Arrangements House Number of Floors (Floors) 3 or More Floors Number of Stairs To Enter/Railing? 3 steps with bilateral wide rails. Home Environment Standard Height Toilet,Walk in Shower Home Equipment Front Wheel Walker,Straight Cane,Raised Toilet Seat w/ Armrests,Shower Seat with Backrest,Hand Held Shower, Product Inspection Coordinator Additional Social History Comment Pt has a supportive to assist with all needs. M2 OT-IP Current Condition Start: 09/05/23 15:25 Freq: Status: Active Protocol: Document 09/05/23 15:25 [facility] (Rec: 09/05/23 15:44 [facility] [id number]) Occupational Therapy Current Condition Current Condition Evaluation Date 09/05/23 Treatment Diagnosis S/P RTKA Diagnosis Onset Date 09/04/23 M3 OT- IP Subjective and Pain Start: 09/05/23 15:25 Freq: Status: Active Protocol: Document 09/05/23 15:25 [facility] (Rec: 09/05/23 15:44 [facility] [id number]) OT- Subjective Occupational Therapy Visit Type Type Initial Evaluation Visit Start Time 14:15 Visit Stop Time 15:23 Occupational Therapy Visit Comments Patient Comments Pt wanting to get dressed. Patient/Caregiver Goals To go home. OT Pain Assessment Pain When Pain Assessed During Mobility Pain Present Pain Present Pain Reported M4 OT- IP ADL's Start: 09/05/23 15:25 Freq: Status: Active Protocol: Document 09/05/23 15:25 [facility] (Rec: 09/05/23 15:44 [facility] [id number]) OT [id number] General Evaluation Self-Feeding Ability Independent OT ADL-Grooming Comments OT Grooming Comments not performed OT ADL-Oral Care Comments Oral Care Comments Not performed OT ADL-Dressing General Eval Upper Body Dressing Ability Independent Lower Body Dressing Ability Moderate Assistance Areas Needing Assistance Socks,Shoes Comments OT Dressing Comments Pt needing assist with right sock and shoe. OT ADL-Toileting Comments OT Toileting Comments Educated pt to be mindful of her right knee positioning needs during ADL and mobility needs. Pt's aware to hold onto the pt for balance while she was able to do her hygiene needs standing. Suggested pt get a BSC which will be much steadier than the RTS with handles and also can be used over the toilet. OT ADL-Bathing Comments OT Bathing Comments Pt states to shower at home and aware to cover the dressing for showering needs. M5 OT- IP IADL's Start: 09/05/23 15:25 Freq: Status: Active Protocol: Document 09/05/23 15:25 [facility] (Rec: 09/05/23 15:44 [facility] [id number]) OT-Instrumental Activities of Daily Living Deficits IADL Deficits Identified No Deficits Home Safety Awareness Home Safety Comments Pt is a little impulsive and needing vc for safety. Pt has a very supportive to be able to assist with all her needs at home. M6 OT- IP Functional Cognition Start: 09/05/23 15:25 Freq: Status: Active Protocol: Document 09/05/23 15:25 [facility] (Rec: 09/05/23 15:44 [facility] [id number]) Cognitive Factors Limiting Selfcare Function Cognitive Ability Level of Alertness Alert Patient Orientation Name,Place,Situation Attention Span Ability Capable of Focused Attention, Capable of Sustained Attention Ability to Follow Commands Able to Follow One Step Commands Safety Awareness Underestimates Need for Assistance Cognitive Comments Cognitive Assessment Comments Pt is a bit impulsive and needing cues to slow down and be sure to communicate with her or when she is trying to move so that he can assist her. Pt's able to demonstrate good safety and understanding of how to assist the pt for all needs. OT- Vision and Hearing OT- Hearing Assessment OT- Hearing Assessment WFL OT- Vision Assessment Visual Acuity Glasses All The Time M7 OT- IP Mobility and Balance Start: 09/05/23 15:25 Freq: Status: Active Protocol: Document 09/05/23 15:25 [facility] (Rec: 09/05/23 15:44 [facility] [id number]) OT-Transfer Assessment Sit to and From Stand Sit to and from Stand Contact Guard Assistance, Minimal Assistance Transfers Transfer Ability Contact Guard Assistance Technique Transfer Destination Bed,Chair,Toilet Transfer Technique Stand Step Pivot Devices Transfer Assistive Devices Gait Belt,Front Wheeled Walker Comments Mobility Comments CGA to occasional MODA for lower surfaces to come to stand to the FWW. Pt's able to karan/doff the gait belt and assist pt safely. OT- Balance Assessment Sitting Balance and Reactions Static Sitting Balance Ability Normal Dynamic Sitting Balance Ability Normal Standing Balance and Reactions Static Standing Balance Ability Good Dynamic Standing Balance Ability Fair M8 OT- IP Objective Assessments Start: 09/05/23 15:25 Freq: Status: Active Protocol: Document 09/05/23 15:25 [facility] (Rec: 09/05/23 15:44 [facility] [id number]) OT Gross Range of Motion Upper Extremity Range of Motion Assessment Within Functional Limits OT Strength Upper Extremity Strength Assessment Within Functional Limits M9 OT- IP Assessment and Plan Start: 09/05/23 15:25 Freq: Status: Active Protocol: Document 09/05/23 15:25 [facility] (Rec: 09/05/23 15:44 [facility] [id number]) OT Summary Assessment and Plan Potential Rehabilitation Potential Excellent Analytic Complexity at Evaluation Low Summary OT Impairments Pain,Balance,Functional Mobility,Dressing,Toileting, Bathing,Toilet Transfers, Shower Transfers Progress Towards Goals Progressing Toward Goals Assessment Summary Pt low complexity and main barriers are pain,steps, and needing assist for ADL and mobility needs. Pt's has been trained to be able to assist pt for all ADL and mobility needs with good safety. Pt thinking about getting a BSC for home use. Pt to have outpt PT. Goals Self-Feeding Goal Independent Grooming Goal Independent Dressing Goal Independent,Product Inspection Coordinator Toileting Goal Independent Bathing Goal Standby Assistance Toilet Transfer Goal Independent Shower Transfer Goal Contact Guard Assistance Days to Meet Goals 5 Frequency of Treatment Frequency Of Treatment Once a Day Treatment Plan OT Treatment Plan ADL Training,Functional Mobility,Patient/Family Education,Discharge Planning Discharge Recommendations OT Discharge Recommendations Home with 25/09 Assist Available,Outpatient PT Home Equipment Needs BSC Transportation Needs at Discharge Private Vehicle
[2023-09-05 16:30] VITALS: BP 160/70; PULSE 78; RESP 16; TEMP 36.5; O2SAT 97
--- NOTE | 2023-09-05 16:40 | P.DS_ITS ---
History of Present Illness History of Present Illness Date Patient Seen: 09/05/23 Time Patient Seen: 16:40 Chief complaint: Knee pain Narrative: See progress note Discharge Providers Provider Discharge Date: 09/05/23 Primary care physician: Joy Woo MD Consults: 09/04/23 06:48 Consult to Anesthesiology Routine Comment: Consulting Provider: Anesthesiologist Reason for consultation: Regional block for post operative pain control 09/04/23 17:53 Consult to Discharge Planning Routine Comment: Consult to Occupational Therapy Evaluate & Treat Comment: Physician Instructions: Evaluate and treat Consult to Physical Therapy Evaluate & Treat Comment: Physician Instructions: postop TKA protocol Discharge provider: Nicholas Waters PA-C Summary Hospital Course Discharge Diagnosis: Severe right knee osteoarthritis Hospital Course: Right total knee arthroplasty Same procedure as scheduled: Yes Indications: The patient has had progressively worsening right knee pain with radiographic changes consistent with arthritis. Non-operative management has failed and the patient has requested total knee replacement. The risks, benefits and alternatives to surgery were discussed with the patient prior to proceeding. Risks discussed included, but were not limited to, failure to relieve pain, stiffness, infection, nerve damage, deep venous thrombosis, pulmonary embolism, stroke, coma, heart attack, permanent paralysis and , as well as the potential need for eventual revision of the prosthetic. Surgeon: Amanda Waite Windows Security Engineer: Nicholas Waters Anesthesia Type: General and Peripheral nerve block Operative Notes Findings: Severe right knee osteoarthritis, acceptable stability, good range of motion Closure Type: primary Specimen(s): none sent Prosthetic devices, grafts, tissues, transplants, or devices: [facility] B[facility] 2 size 4 femur, size 3 tibia, +9 poly, 7 x 5 x 32 mm patella Estimated Blood Loss (mL): 250 Blood products transfused: none Tourniquet time (min): 70 Patient admitted to the hospital for right total knee arthroplasty. Patient consented to the same. Patient underwent right total knee arthroplasty September 04, 2023. Patient back in her room recovering well as in stable condition. Patient has worked twice with physical therapy. Patient stable and safe for home environment. She will be on multimodal pain management. Weightbearing as tolerated, standard total knee replacement protocol. Patient will receive aspirin 81 mg b.i.d. for DVT prophylaxis. Patient has a history of previous periprosthetic infection on the left. She has a history of leukemia. Patient has seen Dr. Jaimes in consultation who has recommended doxycycline 100 mg b.i.d. for 14 days. Tk dressing instructions have been reviewed with the patient. Patient will be discharged home today in stable condition. Status at Discharge Cognitive/behavioral status at discharge: at baseline, oriented Functional status at discharge: uses cane/walker Overall status at discharge: patient is progressing back to baseline Exam Vital Signs (past 8 hours): - 09/05/23 09:52 09/05/23 16:30 Temperature 97.8 F 97.7 F Pulse Rate 69 78 Respiratory Rate 16 16 Blood Pressure 152/64 H 160/70 H Pulse Oximetry 96 97 Oxygen Delivery Method Room Air Oxygen Flow Rate 0 Narrative Exam Narrative: See progress note Objective Labs 09/05/23 04:30 Labs: Laboratory Results - last 24 hr 09/05/23 04:30 Hgb 13.2 Hct 40.0 PFSH Medical History Lower back pain Urethra disorder (~1969) Diverticulitis (~09/2017) GERD (gastroesophageal reflux disease) Edema extremities Hyperlipidemia HTN (hypertension) Walking pneumonia Macular pucker, right eye (~2013) Surgical History History of total left knee replacement (03/20/18) History of tonsillectomy and adenoidectomy H/O: hysterectomy History of right cataract extraction (~2013) History of left cataract extraction (~2016) Social History household members: significant other Smoking Status: Never smoker alcohol intake: never Discharge Assessment & Plan Assessment and Plan Assessment: Patient progressing as expected Plan of Treatment: Weightbearing as tolerated, standard total knee replacement protocol Multimodal pain management Patient's history of previous periprosthetic infection on the left. History of leukemia. Infectious Disease has recommended doxycycline 100 mg b.i.d. for 14 days. Discharge home today in stable condition. Discharge Plan Discharge Plan Patient Disposition: Home Provider Discharge Comment: Pt received postop meds from office. Discharge orders & Medications Discharge Orders: Discharge (Order); Ordered 09/05/23 Ordered By: Nicholas Waters Prescriptions: New doxycycline hyclate 100 mg tablet 100 mg PO BID Qty: 28 0RF Rx Instructions: Start oral antibiotics, 1 tablet b.i.d. for 2 weeks after discharge from hospital acetaminophen 325 mg Tablet 650 mg PO Q6H PRN (Reason: Fever/Mild Pain (1-3)) Qty: 60 0RF aspirin 81 mg Tablet,Delayed Release (Dr/Ec) 81 mg PO BID Qty: 90 0RF Continued omeprazole 20 MG capsule,delayed release(DR/EC) 20 mg PO QDAY Qty: 0 losartan 100 MG tablet 100 mg PO BEDTIME Qty: 0 methotrexate sodium 2.5 mg Tablet 10 mg PO QWEEK Qty: 16 11RF furosemide 20 mg Tablet 20 mg PO DAILY ascorbic acid (vitamin C) [Vitamin C] 500 mg Capsule, Extended Release 500 mg PO DAILY atorvastatin [Lipitor] 10 mg Tablet 20 mg PO BEDTIME cetirizine [Zyrtec] 10 mg Tablet 10 mg PO DAILY multivitamin Capsule 1 cap PO DAILY estradiol 4 mcg Insert 1 mcg VAGINAL Q OTHER DAY melatonin 10 mg Tablet Extended Release 10 mg PO BEDTIME Estroven 155 mg Capsule 1 cap PO DAILY cholecalciferol (vitamin D3) [Vitamin D3] 25 mcg (1,000 unit) Capsule 25 mcg PO DAILY metoprolol succinate 50 mg Tablet Extended Release 24 Hr 50 mg PO BEDTIME prednisone 5 mg Tablet 5 mg PO DAILY prednisone 2.5 mg Tablet 2.5 mg PO DAILY Patient Comments: Takes with 5mg prednisone daily Discontinued aspirin 81 MG tablet,delayed release (DR/EC) 81 mg PO DAILY Qty: 0 Follow up/Referrals: Amanda Waite MD [Physician] - 09/18/23 1:30 pm (Follow up w/ STEVAN Kirby, at [facility] in [place].) Joy Woo MD [Primary Care Provider] - Diet/Activity/Treatments Diet: Diet as Tolerated Activity: Weightbearing as tolerated. Walk frequently! Cold/Heat Therapy: Ice to knee as needed for pain. Other treatments: Patient will start doxycycline 100 mg b.i.d. times 14 days once discharged from hospital. Skin/Wound/Dressing Care Report to your healthcare provider any signs of infection, such as:: chills, fever, night sweats, unusual drainage and unusual redness Dressing: May remove JOVITA wrap and shower on 09/07/2023. Tk dressing instructions reviewed. Leave dressing in place until follow up in office. No bathing or otherwise soaking incision. Call the office if the dressing becomes saturated inside. Visit Report/Discharge Packet Instructions: DI for Knee Replacement, DI for Prescription Opioid Use Stand Alone Forms: Patient Portal/API, Surgery Discharge Discharge Data Primary Care Provider: Joy Woo Attending Provider: Amanda Waite VTE Deep Vein Thrombosis/Pulmonary Embolism Present on Admission: No
== END 2023-09-05 18:39 | disposition home or self-care (01) ==
LOC: OR 12:01 → AC 15:33
PROVIDERS: PCP Internal Medicine; Referring Provider Orthopaedic Surgery; Visit Provider Orthopaedic Surgery
PROC: 0SRC0JZ Replacement of Right Knee Joint with Synthetic Substitute, Open Approach (ICD-10-PCS; CPT 27447; principal; 2023-09-04 13:45)
DX: M17.11 Unilateral primary osteoarthritis, right knee (principal); G89.18 Other acute postprocedural pain; M25.761 Osteophyte, right knee
CPT/HCPCS: 27447; 36415; 64450; 73560; 85014; 85018; 97116; 97162; 97165; 97530; 97535; C1776; C9290; J0171; J0690; J2704

== ENCOUNTER → 2024-03-06 11:06 | Outpatient (CLI) | payer MEDICARE, SELFPAY ==
[2023-09-04 16:05] VITALS: BMI 28.4
--- NOTE | 2024-03-06 11:08 | DI.MG.S_ITS ---
BILATERAL DIGITAL SCREENING MAMMOGRAM 3D/2D WITH CAD: 03/06/2024 CLINICAL: Routine screening. Comparison is made to exams dated: 12/13/2022 mammogram and 11/30/2021 mammogram - [facility]. There are scattered areas of fibroglandular density (category b / 25%-50% glandular tissue). Current study was also evaluated with a Computer Aided Detection (CAD) system. There are benign calcifications in both breasts. No significant masses, calcifications, or other findings are seen in either breast. There has been no significant interval change. IMPRESSION: BENIGN There is no mammographic evidence of malignancy. A 1 year screening mammogram is recommended. Based on the Tyrer Cuzick model (a risk assessment model) the patient's lifetime risk is 6.6% and her 10 year risk is 0.0%. According to the ACR, ACS, and NCCN guidelines, an annual breast MRI exam along with mammogram is recommended if the patient's lifetime risk is 20% or greater. This exam was interpreted at Station ID: [id number]. NOTE: For mammograms, a report in lay terms will be sent to the patient. Approximately 15% of breast malignancies will not be visualized mammographically. In the management of a palpable breast mass, a negative mammogram must not discourage biopsy of a clinically suspicious lesion. Electronically Signed By: Clay mondragon/colby:03/07/2024 09:16:03 letter sent: Normal Exam ACR BI-RADS Category 2: Benign
== END ==
LOC: MAMMO 11:07
PROVIDERS: PCP Internal Medicine; Referring Provider Internal Medicine; Visit Provider Internal Medicine
DX: Z12.31 Encounter for screening mammogram for malignant neoplasm of breast (principal)
CPT/HCPCS: 77063; 77067

== ENCOUNTER 2024-03-23 12:18 | Emergency (ER) | payer MEDICARE, SELFPAY ==
[2023-09-04 16:05] VITALS: BMI 28.4
[2024-03-23 12:27] VITALS: BP 174/86; PULSE 83; RESP 18; TEMP 37.4; O2SAT 98; BMI 27.8
--- NOTE | 2024-03-23 14:49 | PC.NURSE ---
Pt prefers to be off the monitor so she can stretch her legs and go back and forth between the bed and chair. Ambulates independently, nose clamp applied since triage. Patient has been instructed to stop dabbing her nose to allow for clotting. Minimal light blood on Kleenex.
--- NOTE | 2024-03-23 14:49 | ED.EPISTAXIS ---
HPI - Epistaxis General Chief complaint: Nasal Problem Stated complaint: Bloody nose for one hour. Time Seen by Provider: 03/23/24 12:43 Source: patient Mode of arrival: Ambulatory History of Present Illness HPI Narrative: Patient is a 79-year-old female history of chronic nose issues presenting today with epistaxis from the right side. She reports that this morning she had significant nosebleed went through a whole roll of toilet paper can get it to stop bleeding and came to the emergency department. She has not on any antiplatelet or anticoagulation medication. She has been in the emergency department now for 2 hours she has had a nasal clamp and has had no further bleeding. She says that she had epistaxis couple weeks ago and was able to get out went to quickly. This 1 was a lot different. She reports that she got started on Flonase by her PCP and this was her 1st time using it she thinks her nosebleed might be related to that. Related Data Home Medications Medication Instructions Recorded Confirmed losartan 100 mg tablet 100 mg PO BEDTIME ##0 09/20/11 09/04/23 omeprazole 20 mg capsule,delayed 20 mg PO QDAY ##0 09/20/11 09/04/23 release ascorbic acid (vitamin C) 500 mg 500 mg PO DAILY 08/20/17 09/04/23 capsule,extended release (Vitamin C) atorvastatin 10 mg tablet (Lipitor) 20 mg PO BEDTIME 08/20/17 09/04/23 furosemide 20 mg tablet 20 mg PO DAILY 08/20/17 09/04/23 cetirizine 10 mg tablet (Zyrtec) 10 mg PO DAILY 07/03/18 09/04/23 multivitamin 1 cap PO DAILY 01/07/19 09/04/23 estradiol 4 mcg vaginal insert 1 mcg vaginal Q OTHER DAY 09/16/19 09/04/23 melatonin 10 mg tablet,extended 10 mg PO BEDTIME 05/03/20 09/04/23 release soy isoflavone-black cohosh 1 cap PO DAILY 05/03/20 09/04/23 root-magnolia bark 155 mg capsule (Estroven) cholecalciferol (vitamin D3) 25 25 mcg PO DAILY 05/09/21 09/04/23 mcg (1,000 unit) capsule (Vitamin D3) metoprolol succinate 50 mg 50 mg PO BEDTIME 11/10/21 09/04/23 tablet,extended release 24 hr prednisone 5 mg tablet 5 mg PO DAILY 11/10/21 09/04/23 prednisone 2.5 mg tablet 2.5 mg PO DAILY 08/29/23 09/04/23 Previous Rx's Medication Instructions Recorded methotrexate sodium 2.5 mg tablet 10 mg (4 x 2.5 mg) PO QWEEK LGL 03/30/22 #16 tabs acetaminophen 325 mg tablet 650 mg (2 x 325 mg) PO Q6H PRN 09/05/23 Fever/Mild Pain (1-3) #60 tabs aspirin 81 mg tablet,delayed 81 mg PO BID #90 tabs 09/05/23 release doxycycline hyclate 100 mg tablet 100 mg PO BID #28 tabs 09/05/23 Allergies Allergy/AdvReac Type Severity Reaction Status Date / Time adhesive tape Allergy Intermediate Welts, Verified 09/04/23 12:26 itching w/extended wear levofloxacin AdvReac Intermediate TENDON/JOINT Verified 09/04/23 12:26 PAIN Patient History Medical History Lower back pain Urethra disorder (~1969) Diverticulitis (~09/2017) GERD (gastroesophageal reflux disease) Edema extremities Hyperlipidemia HTN (hypertension) Walking pneumonia Macular pucker, right eye (~2013) Surgical History History of total left knee replacement (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) History of tonsillectomy and adenoidectomy H/O: hysterectomy History of right cataract extraction (~2013) History of left cataract extraction (~2016) Social History household members: significant other Smoking Status: Never smoker alcohol intake: never Smoking Status: Never smoker Exam Initial Vital Signs Initial Vital Signs: Vital Signs Temperature 99.3 F 03/23/24 12:27 Pulse Rate 83 03/23/24 12:27 Respiratory Rate 18 03/23/24 12:27 Blood Pressure 174/86 H 03/23/24 12:27 Pulse Oximetry 98 03/23/24 12:27 Oxygen Delivery Method Room Air 03/23/24 12:27 GENERAL: Well-appearing, well-nourished and in no acute distress. CARDIOVASCULAR: peripheral pulses in tact, cap refill <2 sec NOSE: Right nare-blood clot present no active bleeding. left nare no active bleeding PHARYNX: No nasal drainage or blood RESPIRATORY: No respiratory distress, speaks in full sentences without difficulty EXTREMITIES: Normal range of motion, no clubbing or edema. Neurovascularly intact NEUROLOGICAL: Cranial nerves II through XII grossly intact. Normal gait and speech. SKIN: Warm, dry, no petechiae, no rashes or lesions. Course Vital Signs Vital signs: Vital Signs - 8 hr 03/23/24 12:27 03/23/24 15:27 03/23/24 15:28 Temperature 99.3 F Pulse Rate 83 81 Respiratory Rate 18 Blood Pressure 174/86 H 176/78 H Pulse Oximetry 98 96 Oxygen Delivery Method Room Air 03/23/24 15:28 03/23/24 15:29 03/23/24 15:29 Temperature Pulse Rate 77 72 Respiratory Rate Blood Pressure 168/68 H Pulse Oximetry 98 100 Oxygen Delivery Method Room Air 03/23/24 15:30 03/23/24 15:30 03/23/24 15:37 Temperature Pulse Rate 71 72 Respiratory Rate Blood Pressure 160/76 H Pulse Oximetry 100 98 Oxygen Delivery Method Room Air 03/23/24 15:37 Temperature Pulse Rate Respiratory Rate Blood Pressure 166/81 H Pulse Oximetry Oxygen Delivery Method MDM - Epistaxis MDM Narrative Medical decision making narrative: Patient is 79-year-old female has history of ongoing nose problems she has used the nasal gel to help with dry nose. Last night she used Flonase and had significant epistaxis this morning. No further bleeding in the emergency department. No evidence of posterior nosebleed likely anterior. It stopped with only a nasal clamp she would still continues to have a large clot in the right side. I encouraged her to be that in and maybe low at out in a couple of hours. At this time I do recommend if she continue to have problems consider getting referral to ENT Discharge Plan Departure Patient Disposition: Home Clinical Impression: Epistaxis Instructions: DI for Nosebleed Activity Restrictions/Additional Instructions: *You have been diagnosed with nosebleed *What to do: At this time talk with your PCP may need referral to ENT May try Afrin nasal spray if having an active nose bleed however only use 1 or 2 sprays, no more than 3 days in a row. This maybe a reaction from Flonase I would stop using Flonase *Continue to take medications as directed *Follow up with your primary care provider in 2-3 days or call [phone] *Return to ER if you should have persistent bleeding greater than 60 minutes despite nasal clamp and Afrin or any new, worsening or concerning symptoms Prescriptions: No Action omeprazole 20 MG capsule,delayed release(DR/EC) 20 mg PO QDAY Qty: 0 losartan 100 MG tablet 100 mg PO BEDTIME Qty: 0 methotrexate sodium 2.5 mg Tablet 10 mg PO QWEEK Qty: 16 11RF furosemide 20 mg Tablet 20 mg PO DAILY ascorbic acid (vitamin C) [Vitamin C] 500 mg Capsule, Extended Release 500 mg PO DAILY atorvastatin [Lipitor] 10 mg Tablet 20 mg PO BEDTIME cetirizine [Zyrtec] 10 mg Tablet 10 mg PO DAILY multivitamin Capsule 1 cap PO DAILY estradiol 4 mcg Insert 1 mcg VAGINAL Q OTHER DAY melatonin 10 mg Tablet Extended Release 10 mg PO BEDTIME Estroven 155 mg Capsule 1 cap PO DAILY cholecalciferol (vitamin D3) [Vitamin D3] 25 mcg (1,000 unit) Capsule 25 mcg PO DAILY metoprolol succinate 50 mg Tablet Extended Release 24 Hr 50 mg PO BEDTIME prednisone 5 mg Tablet 5 mg PO DAILY prednisone 2.5 mg Tablet 2.5 mg PO DAILY Patient Comments: Takes with 5mg prednisone daily doxycycline hyclate 100 mg tablet 100 mg PO BID Qty: 28 0RF Rx Instructions: Start oral antibiotics, 1 tablet b.i.d. for 2 weeks after discharge from hospital acetaminophen 325 mg Tablet 650 mg PO Q6H PRN (Reason: Fever/Mild Pain (1-3)) Qty: 60 0RF aspirin 81 mg Tablet,Delayed Release (Dr/Ec) 81 mg PO BID Qty: 90 0RF Referrals: Joy Woo MD [Primary Care Provider] - Stand Alone Forms: Patient Portal/API/Survey
[2024-03-23 15:27] VITALS: PULSE 81; O2SAT 96
[2024-03-23 15:28] VITALS: BP 176/78; PULSE 77; O2SAT 98
[2024-03-23 15:29] VITALS: BP 168/68; PULSE 72; O2SAT 100
[2024-03-23 15:30] VITALS: BP 160/76; PULSE 71; O2SAT 100
[2024-03-23 15:37] VITALS: BP 166/81; PULSE 72; O2SAT 98
== END 2024-03-23 15:39 | disposition home or self-care (01) ==
PROVIDERS: Emergency Provider Emergency Medicine; PCP Internal Medicine; Referring Provider Internal Medicine
DX: R04.0 Epistaxis (principal)
CPT/HCPCS: 17250; 99281; 99283